=== PATIENT | male | born 1995 | race Caucasian/White ===

== ENCOUNTER 2019-02-27 22:20 | Observation (INO) | payer MEDICAID, SELFPAY ==
[2019-02-27 22:24] VITALS: BP 156/96; PULSE 128; RESP 18; TEMP 37.1; O2SAT 99; BMI 33.5
--- NOTE | 2019-02-27 22:46 | EKG12_ITS ---
Test Reason : DIZZINESS Blood Pressure : / mmHG Vent. Rate : 120 BPM Atrial Rate : 120 BPM P-R Int : 142 ms QRS Dur : 082 ms QT Int : 312 ms P-R-T Axes : 030 -10 040 degrees QTc Int : 440 ms Sinus tachycardia Otherwise normal ECG Confirmed by TYRESE TREADWELL, DIEGO ([id number]), newspaper photo editor CHRIS MIDDLETON ([id number]) on 03/04/2019 1:42:50 PM Referred By: ALLAN Confirmed By:DIEGO XIONG MD
[2019-02-27] MEDS: 0.9% Normal Saline 1,000 ML 1000 ML IV (23:17)
[2019-02-27] MEDS: Ondansetron 4 MG/2 ML Vial IV (23:17)
[2019-02-27] MEDS: DiphenhydrAMINE 50 MG/ML Syringe 12.5 MG IV (23:17)
[2019-02-27 23:25] LABS: Absolute Lymphocyte Count 1.29 X10^3/ul (0.83-4.51); Absolute Neutrophil Count 13.2 X10^3/uL (2.0-7.7); Basophil# 0.02 X10^3/uL; Basophil% 0.1 % (0-1); Differential Indicated SCAN CRITERIA MET; Eosinophil# 0.03 X10^3/uL; Eosinophils% 0.2 % (0-5); Hematocrit 47.8 % (40-54); Hemoglobin 16.4 g/dl (13.0-16.5); Lymphocyte # 1.29 X10^3/ul (4.0); Lymphocyte % 7.7 % (19-41); Mean Corp Hgb Conc 34.3 g/gl (32-36); Mean Corpuscular Hgb 28.2 pg (27.0-32.0); Mean Corpuscular Volume 82.3 fL (80-94); Mean Platelet Vol. 10.1 fl (6.2-12.0); Monocyte# 2.09 X10^3/uL; Monocyte% 12.6 % (0-10); Neutrophil # 13.16 X10^3/uL (2.7-7.7); POSITIVE COUNT NO; POSITIVE DIFFERENTIAL YES; POSITIVE MORPHOLOGY NO; Platelet Count 209 K/mm3 (150-450); RBC Distribution Width CV 12.7 % (11.6-14.6); RBC Distribution Width SD 37.8 fl (35.1-43.9); Red Blood Count 5.81 M/mm3 (4.6-6.2); White Blood Count 16.7 K/mm3 (4.4-11.0)
[2019-02-27 23:37] LABS: Anion Gap 7 (5-15); BUN 12 mg/dL (7-18); BUN/Creat Ratio 10.7 RATIO (10-20); Calcium,Total 9.2 mg/dL (8.5-10.1); Chloride 102 mmol/L (98-107); Creatinine, Serum 1.12 mg/dL (0.70-1.30); EST Glomerular Filtration Rate 84 mL/min (>60); Est Glom Filt Rate - Afr Amer 102 mL/min (>60); Glucose 105 mg/dL (74-106); Sodium Level 136 mmol/L (136-145)
[2019-02-27 23:40] LABS: Mucous, Urine 0 SEEN /hpf (<or=2+); Red Blood Cells-Urine 0 SEEN /hpf (0-5); White Blood Cells 0 SEEN /hpf (0-5)
[2019-02-27 23:45] LABS: Color, Urine Yellow (Yellow); Glucose, Dipstick Normal (Normal); Ketone-Dipstick Negative (Negative); Leukocyte Esterase-Dipstick Negative /ul (Negative); Nitrite-Dipstick Negative (Negative); Occult Blood-Urine Negative /ul (Negative); Protein-Dipstick Negative (Negative); Specific Gravity, Urine 1.015 (1.002-1.030); Urine Bilirubin Dipstick Negative (Negative); Urine Clarity Clear (Clear); Urine Urobilinogen Normal (Normal)
[2019-02-27 23:47] LABS: Differential Comment SCANNED
[2019-02-27 23:51] LABS: Bacteria RARE /hpf (None Seen); Squamous Epithelial Cells - UA 0-5 SEEN /hpf (0-5)
[2019-02-28] VITALS (12 sets, daily range): BP systolic 120–134; BP diastolic 77–88; PULSE 75–121; RESP 15–25; TEMP 36.4–36.8; O2SAT 93–96; BMI 33.7
[2019-02-28] MEDS: LORazepam 2 MG/ML Syringe 0.5 MG IV (00:44)
--- NOTE | 2019-02-28 01:23 | CT_ITS ---
HISTORY: DIZZINESS AND NAUSEAHX:SEIZURES EXAMINATION: CT Head or Brain W/O Contrast TECHNIQUE: Multiple axial images were obtained of the brain without intravenous contrast. A radiation dose optimization technique was used for this scan. IV Contrast dosage and agent: None. COMPARISON: 05/19/2016 FINDINGS: No significant change. Normal ventricles and normal cam-white matter differentiation. No intracranial mass, hemorrhage, or acute parenchymal abnormality. Posterior fossa structures are unremarkable. No suspicious extra-axial fluid collection. As visualized, the mastoids and paranasal sinuses are clear. CT/Brain/Head without Contrast IMPRESSION: Normal CT brain without contrast. Individualized dose optimization techniques were used for this CT. at 0251 Reported and signed by: Fernando Yeager MD Electronically Signed: Fernando Yeager, at 2:49 EDT Tel , Service support ,
[2019-02-28] MEDS: Meclizine HCl 25 MG Tablet PO ×4 (01:40→20:55)
--- NOTE | 2019-02-28 03:21 | ED.RN ---
MD AWARE OF PT STILL FEELING DIZZY.
--- NOTE | 2019-02-28 04:05 | HP.PCM_ITS ---
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 He described his seizures as spinning sensation and he being about to sink. Although in the past he has had dizziness, this current dizziness persisted all day unlike previous. The dizziness occurs with movement. At rest he has no dizziness. Also associated with his symptoms is malaise and nausea. He denies any recent infection or hearing loss. Emergency department doctor reported that patient complained of his throat closing. Further patient was found to have sinus tachycardia at the ED. He reports that typically his pulse is around 90 to 100 but at the ED his heart rate was found to be around 110 to 120. Patient was given Ativan, Antivert, Benadryl, Zofran and normal saline bolus at the ED Past Medical History Medical History: Medical History (Last Reviewed 02/28/19 @ 06:48 by Eusebio Agrawal MD) Seizure R56.9 Allergies amoxicillin trihydrate [From Augmentin] Allergy (Verified 02/27/19 22:24) Shortness of breath banana [Banana] Allergy (Verified 02/27/19 22:24) Chest tightness potassium clavulanate [From Augmentin] Allergy (Verified 02/27/19 22:24) Shortness of breath naproxen [From Naprosyn] Adverse Reaction (Verified 02/27/19 22:24) Nausea AVACODO Allergy (Uncoded 02/27/19 22:24) Shortness of breath KIWI Allergy (Uncoded 02/27/19 22:24) Shortness of breath POTASSIUM NITRATE Allergy (Uncoded 02/27/19 22:24) Shortness of breath Home Medications: Ambulatory Orders Medication Instructions Recorded Ondansetron [Zofran Odt] 4 mg PO Q8H PRN PRN 01/16/16 Metoclopramide [Reglan] 10 mg PO 4X/DAY #20 tablet 05/22/16 Pantoprazole Sodium [Protonix] 40 mg PO BID #60 tablet 05/22/16 Valproic Acid [Depakene] 750 mg PO BID 02/28/19 levETIRAcetam tablet [Keppra] 1,500 mg PO BID #180 tablet 02/28/19 Surgical History: - - Bilateral shoulder surgery. He reported that he had seizures and fell injuring his bilateral shoulders and required surgery. He reported that later his body rejected hardware in his left shoulder so that hardware had to be removed. He thinks that now his body is rejecting the right hardware so that would also have to be removed. Lives: With Family Smoking Status: Never smoker Alcohol: None - *Family History Maternal History Items: Heart Disease, Renal Disease Paternal History Items: Heart Disease Review of Systems Constitutional: Reports: Chills, Malaise. Denies: Fever, Weight Change HEENT: Denies: Head Aches, Sinus Congestion, Sinus Drainage Cardiovascular: Denies: Chest Pain, Palpitations Respiratory: Denies: Cough, Shortness of breath at rest, Sputum production Gastrointestinal: Reports: Nausea. Denies: Abdominal Pain, Vomiting Genitourinary: Denies: Dysuria Musculoskeletal: Denies: Joint Pain, Joint Tenderness Skin: Denies: Rash, Wounds Neurological: Denies: Numbness, Tingling, Focal weakness Psychiatric: Denies: Anxiety, Depression, Homicidal Ideations, Suicidal Ideations Hematologic/ Lymphatic: Denies: Easy Bruising, Easy Bleeding VTE Information - Inpt Only VTE Present on Admission: No VTE Mechan Device Prophylaxis: None VTE Pharm Prophylaxis ordered?: No Reason prophylaxis not ordered:: Treatment Not Indicated - Low risk. Encouraged to ambulate. Patient Problems: Active and Suspected Problems (Last Updated 02/28/19 @ 05:48 by Eusebio Agrawal MD) Vertigo (Acute) - Physical Exam General: Alert, Oriented x3, Cooperative, - - Obese HEENT: Atraumatic, PERRLA, EOMI, Normocephalic, - - Earwax prevented visualization of eardrum. Neck: Supple, No JVD, Negative Carotid Bruits Lungs: Clear to auscultation, Normal air movement Cardiovascular: Normal S1, Normal S2, No murmurs, Tachycardic Abdomen: Bowel Sounds Present, Soft, Non Tender Extremities: No edema, Capillary Refill Less than 3 Seconds Skin: No rashes, No breakdown Musculoskeletal: No Tenderness to Palpation of Joints or Extremities Neurological: Neuro grossly intact, - - [place]-Hallpike maneuver was unremarkable on the left. The patient complained of dizziness with [place]-Hallpike maneuver on the right. No nystagmus was seen in either case. Psych/Mental Status: Normal Affect, Appropriate Vital Signs Temp Pulse Resp BP Pulse Ox 98.8 F 116 H 18 120/87 H 96 02/27/19 22:24 02/28/19 04:02 02/28/19 04:02 02/28/19 00:56 02/28/19 04:02 Oxygen Delivery Method Room Air Weight: 100.2 kg Body Mass Index (BMI) 33.5 Laboratory Tests Past 24 Hrs 02/27/19 02/27/19 02/27/19 23:15 23:15 23:35 WBC 16.7 H RBC 5.81 Hgb 16.4 Hct 47.8 MCV 82.3 MCH 28.2 MCHC 34.3 RDW 12.7 RDW Differential 37.8 Plt Count 209 MPV 10.1 Immature Gran % (Auto) 0.400 Neut % (Auto) 79.0 H Lymph % (Auto) 7.7 L [place] % (Auto) 12.6 H Eos % (Auto) 0.2 Baso % (Auto) 0.1 Absolute Neuts (auto) 13.2 H Absolute Lymphs (auto) 1.29 Total Counted Not Reportable Differential Comment SCANNED Diff Path Review February Sodium 136 Potassium 4.0 Chloride 102 Carbon Dioxide 27.0 Anion Gap 7 BUN 12 Creatinine 1.12 Estim Creat Clear Calc 96.70 Est GFR (MDRD) Af Amer 102 Est GFR (MDRD) Non-Af 84 BUN/Creatinine Ratio 10.7 Glucose 105 Calcium 9.2 Urine Color Yellow Urine Clarity Clear Urine pH 8.0 Ur Specific [place] 1.015 Urine Protein Negative Urine Glucose (UA) Normal Urine Ketones Negative Urine Occult Blood Negative Urine Nitrite Negative Urine Bilirubin Negative Urine Urobilinogen Normal Ur Leukocyte Esterase Negative Urine RBC 0 SEEN Urine WBC 0 SEEN Ur Squamous Epith Cells 0-5 SEEN Urine Bacteria RARE Urine Mucus 0 SEEN Assessment/Plan All Active Problems (Last Updated 02/28/19 @ 05:48 by Eusebio Agrawal MD) Vertigo (Acute) The patient is a 24 year old M with a significant history of Obesity; 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 Vertigo Due to the positional nature of the vertigo likely this is BPPV. Other differential diagnosis includes Vestibular neuritis. Less likely posterior circulation stroke in this young patient with no vascular disease or diabetes. Further Differential diagnosis include viral illness since patient complained of chills. Ordered MRI/MRA of head and neck. Scheduled meclizine Prn Zofran Consider benzodiazepines if meclizine is not effective and if MRI is negative. Physical therapy to train on Vestibular Rehab and to do Leanna maneuver Status po Fluid bolus at the ED; after which maintenance IV was initiated. Continue NSS maintenance infusion Seizure Disorder Valproic acid continued DVT Prophylaxis Low risk. Encouraged to ambulate Code Visit OBSV E&M: 05159 Initial observation care L3
--- NOTE | 2019-02-28 04:06 | ED.DCSUM_ITS ---
- ER Visit Summary Date of Service: 02/28/19 Chief Complaint: Dizzy, nausea History of Present Illness: The patient is a 24 M with history of seizures. Patient states he woke this morning with dizziness. He describes it as both lightheadedness and some spinning sensation. He has had similar in the past but states it usually resolves on its own very quickly. Today symptoms of lasted all day. He is also stating that he feels like his throat is tightening up. He denies any new foods or medications today. His last seizure was in January. He follows with neurology in [place]. Physical Examination: Blood pressure is 136/96, temperature 98.8, heart rate 128, respiratory rate 18, pulse ox 99% on room air. Patient sitting upright in bed no acute distress. He speaks with a strong voice and is tolerating secretions well. Head and neck examination normal. Heart is regular rhythm but tachycardic. Lung sounds are clear. Abdomen is soft and nontender. Neuro exam is unremarkable. Test Results: EKG is sinus tach at 120 with no sign of acute ischemia. CBC was a white count of 16.7 with 78% neutrophils. Chemistry studies normal. Urinalysis normal. Emergency Department Course and Treatment: Patient does report a history of tachycardia, but states his heart is a little faster today than normal. Patient is given IV fluids, Zofran, and Benadryl. On repeat evaluation heart rate is around 112 when he is resting, when you enter the room to talk with him it will go back up into the 120s. Patient denies any recent illness or infection. He has not had cough or shortness of breath. He does not have abdominal pain, nausea, vomiting, or diarrhea. Due to continued dizziness, patient was given a small dose of Ativan and sent for head CT. CT head is unremarkable. On repeat examination patient states he still felt quite dizzy when attempting to ambulate to the restroom. He was given a dose of p.o. Antivert. Nursing staff to get patient up to ambulate him again. He still feels quite dizzy and unsteady on his feet. I will speak with hospitalist regarding admission. Treatment Plan: [] Disposition: Admit Impression: 1. Intractable dizziness 2. Tachycardia This note was generated with [employer] software. It may contain incorrect words, spelling, and punctuation that were not noted in review of the chart prior to signing ED Disposition - Plan for ED Patient: Referrals: Jose Elias Nguyen MD [Primary Care Provider] -
--- NOTE | 2019-02-28 05:32 | MRI_ITS ---
STUDY: MRA OF THE HEAD WITHOUT CONTRAST REASON FOR EXAM: Male, 24 years old. Vertigo, history of seizures. Melkersson-Jason syndrome. TECHNIQUE: 3-D [id number] (TOF) imaging was performed with MIPs. The study was performed unenhanced. COMPARISON: No prior similar imaging at this institution. Prior CT of the head/brain performed February 28, [address] brain without contrast. FINDINGS: Normal bilateral petrous carotid arteries. Normal right cavernous carotid artery with a normal supraclinoid bifurcation. Normal left cavernous carotid artery with a normal supraclinoid bifurcation. Normal right A1 segments of the anterior cerebral artery. Normal left A1 segments of the anterior cerebral artery. Normal intact anterior communicating artery (ACOM). Normal bilateral A2 segments of the anterior cerebral arteries. Normal right M1 and M2 segments of the middle cerebral arteries, with a normal M1 bifurcation. Normal left M1 and M2 segments of the middle cerebral arteries, with a normal M1 bifurcation. There is nonvisualization of the right posterior communicating artery (PCOM). This finding may simply represent slow flow in a small vessel averaged in plane. Normal left posterior communicating artery (PCOM). Normal bilateral vertebral arteries. Normal basilar artery with a normal basilar bifurcation. The visualized bilateral superior cerebellar (SCA) arteries are normal. Normal bilateral P1, P2 and visualized P3 segments of the posterior cerebral arteries. There is no demonstrated aneurysm of the [place] of [place]. There is no major vessel occlusion or hemodynamically significant stenosis. There is no demonstrated abnormality of the visualized brain. MRI/MRA Head ONLY without Contrast IMPRESSION: No evident aneurysm. No evidence of vasculitis. No CT evident hemodynamically significant stenosis. Nonvisualization of the right posterior communicating artery may simply represent slow flow in a small vessel that is imaged in plane. Electronically Signed: Mark Carreon MD at 9:50 EDT , Service support ,
--- NOTE | 2019-02-28 05:32 | MRI_ITS ---
STUDY: MRI BRAIN WITHOUT CONTRAST REASON FOR EXAM: Male, 24 years old. Vertigo, history of seizures, milk or central Jason syndrome. TECHNIQUE: Standardized multiplanar fat and water weighted pulse sequences were obtained. COMPARISON: No contrast was administered. FINDINGS: There is no restricted diffusion to indicate acute ischemia/edema. There is no evidence of chronic blood degradation products on the axial T2 GRE sequence. Normal size of the ventricles and extra-axial spaces for the patient's age. Normal white matter tracts of the supratentorial brain. Normal bilateral basal ganglia. Normal thalami. There is no extra-axial fluid accumulation. Normal flow voids within the major intracranial circulation suggesting patency by spin echo criteria. Normal sella turcica, pituitary gland, infundibular stalk, optic chiasm and hypothalamus. Normal tectal plate and pineal gland. Normal midbrain, mary and medulla. Normal cerebellum. Normal basal cisterns. Normal bilateral temporal bones. Normal bilateral internal auditory canals. No demonstrated orbital abnormality, within the constraints of a routine brain study. Normal visualized paranasal sinuses and mastoid air cells. Normal calvarium and skull base. Normal visualized soft tissue structures. Normal visualized upper cervical spine. MRI/Brain without Contrast IMPRESSION: No restricted diffusion to indicate acute ischemia/edema. No evidence of chronic blood dictation products on axial T2 GRE sequence. No mass or mass effect. Unremarkable appearing morphology and signal characteristics of the brain. Electronically Signed: Mark Carreon MD at 10:00 EDT , Service support ,
[2019-02-28] MEDS: 0.9% Normal Saline 1,000 ML 100 ML IV (05:40)
[2019-02-28] MEDS: 0.9% NaCl Peripheral Flush Adult/Peds IV (05:48)
[2019-02-28 06:59] LABS: Cholesterol 180 mg/dL (200); High Density Lipoprotein 34 mg/dL; Triglycerides 165 mg/dL; Very Low Density Lipoprotein 33 mg/dL (5-40)
--- NOTE | 2019-02-28 07:58 | MRI_ITS ---
STUDY: MRA NECK WITH AND WITHOUT CONTRAST REASON FOR EXAM: Male, 24 years old. Vertigo. Seizure. Melkersson-Jason syndrome. TECHNIQUE: 3-D [id number] (TOF) imaging was performed in an 1.5 T MRI scanner. 20 IV Dotarem was administered for the contrast enhanced images. COMPARISON: None. FINDINGS: RIGHT CAROTID ARTERIES: Normal right common carotid artery (CCA). Normal right common carotid bulb. Normal origin of the right internal carotid (ICA) artery without a hemodynamically significant stenosis. Normal visualized cervical portion of the right internal carotid artery. Normal origin of the right external carotid artery (ECA). LEFT CAROTID ARTERIES: Normal left common carotid artery (CCA). Normal left common carotid bulb. Normal origin of the left internal carotid (ICA) artery without a hemodynamically significant stenosis. There is atherosclerotic tortuous elongation of the cervical portion of the left internal carotid artery. Normal origin of the left external carotid artery (ECA). VERTEBRAL ARTERIES: Normal antegrade flow within the bilateral vertebral artery without a hemodynamically significant stenosis. MRI/MRA Neck WITH and W/O Contrast IMPRESSION: Normal bilateral cervical carotid and vertebral arteries. No stenosis or focal narrowing. Electronically Signed: Tomy Esapña MD at 10:55 EDT , Service support ,
[2019-02-28] MEDS: Divalproex Sodium 250 MG Tablet 750 MG PO ×2 (09:46→20:54)
[2019-02-28 11:48] LABS: Absolute Lymphocyte Count 2.01 X10^3/ul (0.83-4.51); Absolute Neutrophil Count 10.7 X10^3/uL (2.0-7.7); Basophil# 0.02 X10^3/uL; Basophil% 0.1 % (0-1); Differential Indicated SCAN CRITERIA MET; Eosinophil# 0.03 X10^3/uL; Eosinophils% 0.2 % (0-5); Hematocrit 45.3 % (40-54); Hemoglobin 15.4 g/dl (13.0-16.5); Lymphocyte # 2.01 X10^3/ul (4.0); Lymphocyte % 13.6 % (19-41); Mean Corpuscular Hgb 28.8 pg (27.0-32.0); Mean Corpuscular Volume 84.8 fL (80-94); Mean Platelet Vol. 9.8 fl (6.2-12.0); Monocyte# 1.92 X10^3/uL; Neutrophil # 10.72 X10^3/uL (2.7-7.7); Neutrophil % 72.8 % (47-70); POSITIVE COUNT NO; POSITIVE DIFFERENTIAL YES; POSITIVE MORPHOLOGY NO; Platelet Count 169 K/mm3 (150-450); RBC Distribution Width CV 12.9 % (11.6-14.6); RBC Distribution Width SD 39.4 fl (35.1-43.9); Red Blood Count 5.34 M/mm3 (4.6-6.2); White Blood Count 14.7 K/mm3 (4.4-11.0)
--- NOTE | 2019-02-28 13:07 | PCM.PROGNOTE ---
<Robin Funk - Last Filed: 02/28/19 13:07> Patient Problems: Active and Suspected Problems (Last Reviewed 02/28/19 @ 06:48 by Eusebio Agrawal MD) Vertigo (Acute) Subjective: Pt reports still having some dizziness, no spinning currently. No double vision, blurry vision. No new focal weakness or sensation changes. He is concerned he may have had a seizure, as he had episodes yesterday where his mother was talking to him, and he had no recollection of it, and she noted that he was not appearing to be paying attention. He does not remember having muscle spasms, incontinence, tongue biting. He has chronic right sided facial droop. He has had multiple episodes of BL bells palsy. He had a headache this AM - mild, but none now. No nausea currently. He states he has had chronic issues keeping his depakote level from being low and has been told it is because he has a fast metabolism. He denies any recent illness or infection. No fevers/chills. No cough, SOB, runny nose, congestion, sore throat. - Physical Exam General: Alert, Oriented x3, Cooperative HEENT: Atraumatic, PERRLA, EOMI, Normocephalic Neck: Supple, No JVD, Negative Carotid Bruits Lungs: Clear to auscultation, Normal air movement Cardiovascular: Regular rate, No murmurs Abdomen: Bowel Sounds Present, Soft, Non Tender Extremities: No edema, Capillary Refill Less than 3 Seconds Skin: No rashes, No breakdown Musculoskeletal: No Tenderness to Palpation of Joints or Extremities Neurological: Cranial nerves II-XII grossly intact, - - mild right facial droop, weakness in right cheek, left leg mild weakness. Psych/Mental Status: Normal Affect, Appropriate, Alert and oriented to time, place, person, mood and affect Vital Signs Temp Pulse Resp BP Pulse Ox 97.8 F 109 H 16 129/88 H 95 02/28/19 08:15 02/28/19 08:15 02/28/19 08:15 02/28/19 08:15 02/28/19 08:15 Oxygen Delivery Method Room Air Weight: 221 lb 9.033 oz Body Mass Index (BMI) 33.7 Intake and Output for Last 24 Hours 02/26/19 02/27/19 02/28/19 23:59 23:59 23:59 Intake Total 1200 / 1200 Balance 1200 / 1200 Laboratory Tests Past 24 Hrs 02/27/19 02/27/19 02/27/19 23:15 23:15 23:35 WBC 16.7 H RBC 5.81 Hgb 16.4 Hct 47.8 MCV 82.3 MCH 28.2 MCHC 34.3 RDW 12.7 RDW Differential 37.8 Plt Count 209 MPV 10.1 Immature Gran % (Auto) 0.400 Neut % (Auto) 79.0 H Lymph % (Auto) 7.7 L [place] % (Auto) 12.6 H Eos % (Auto) 0.2 Baso % (Auto) 0.1 Absolute Neuts (auto) 13.2 H Absolute Lymphs (auto) 1.29 Total Counted Not Reportable Differential Comment SCANNED Diff Path Review May foll Sodium 136 Potassium 4.0 Chloride 102 Carbon Dioxide 27.0 Anion Gap 7 BUN 12 Creatinine 1.12 Estim Creat Clear Calc 96.70 Est GFR (MDRD) Af Amer 102 Est GFR (MDRD) Non-Af 84 BUN/Creatinine Ratio 10.7 Glucose 105 Calcium 9.2 Triglycerides Cholesterol LDL Cholesterol VLDL Cholesterol HDL Cholesterol Urine Color Yellow Urine Clarity Clear Urine pH 8.0 Ur Specific [place] 1.015 Urine Protein Negative Urine Glucose (UA) Normal Urine Ketones Negative Urine Occult Blood Negative Urine Nitrite Negative Urine Bilirubin Negative Urine Urobilinogen Normal Ur Leukocyte Esterase Negative Urine RBC 0 SEEN Urine WBC 0 SEEN Ur Squamous Epith Cells 0-5 SEEN Urine Bacteria RARE Urine Mucus 0 SEEN 02/28/19 02/28/19 06:24 11:30 WBC 14.7 H RBC 5.34 Hgb 15.4 Hct 45.3 MCV 84.8 MCH 28.8 MCHC 34.0 RDW 12.9 RDW Differential 39.4 Plt Count 169 MPV 9.8 Immature Gran % (Auto) 0.300 Neut % (Auto) 72.8 H Lymph % (Auto) 13.6 L [place] % (Auto) 13.0 H Eos % (Auto) 0.2 Baso % (Auto) 0.1 Absolute Neuts (auto) 10.7 H Absolute Lymphs (auto) 2.01 Total Counted Not Reportable Differential Comment COMMENT Diff Path Review May foll Sodium Potassium Chloride Carbon Dioxide Anion Gap BUN Creatinine Estim Creat Clear Calc Est GFR (MDRD) Af Amer Est GFR (MDRD) Non-Af BUN/Creatinine Ratio Glucose Calcium Triglycerides 165 Cholesterol 180 LDL Cholesterol 113 VLDL Cholesterol 33 HDL Cholesterol 34 L Urine Color Urine Clarity Urine pH Ur Specific [place] Urine Protein Urine Glucose (UA) Urine Ketones Urine Occult Blood Urine Nitrite Urine Bilirubin Urine Urobilinogen Ur Leukocyte Esterase Urine RBC Urine WBC Ur Squamous Epith Cells Urine Bacteria Urine Mucus Medical Necessity - Tobacco Use Smoking Status: Never smoker Tobacco Use: Non-smoker Assessment/Plan All Active Problems (Last Reviewed 02/28/19 @ 06:48 by Eusebio Agrawal MD) Vertigo (Acute) 1. Dizziness - unclear etiology. MRI/MRA negative. CT brain neg. PRN meclizine. PTOT, vestib therapy. 2. ? Seizure activity - pt concerned the above related to seizure. He states he is not considered controlled, and had a seizure about 1 month prior. He has issues keeping depakote levels regulated. He states he has a hx of absence seizures, grand mal, and focal seizures. He thinks he may have had an absence seizure yesterday. He follows 2 neurologists, Raquel and [facility]. -Check depakote level -EEG -neuro consult. 3. Leukocytosis - improved. unclear etiology. Denies recent illness/infection. Currently does not feel ill. 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 5. Obesity - dietary eval. DVT ppx: early ambulation DC planning: pending neuro eval This patient was seen by Robin Funk PA-C under the supervision of Dr. Escobar. <Mariana Escobar - Last Filed: 02/28/19 16:27> - Physical Exam Vital Signs Temp Pulse Resp BP Pulse Ox 98.1 F 121 H 16 131/77 H 96 02/28/19 14:15 02/28/19 16:14 02/28/19 14:15 02/28/19 14:15 02/28/19 14:15 Oxygen Delivery Method Room Air Weight: 100.5 kg Body Mass Index (BMI) 33.7 Intake and Output for Last 24 Hours 02/26/19 02/27/19 02/28/19 23:59 23:59 23:59 Intake Total 1200 / 1200 Balance 1200 / 1200 Laboratory Tests Past 24 Hrs 0502/27/19 02/27/19 23:15 23:15 23:35 WBC 16.7 H RBC 5.81 Hgb 16.4 Hct 47.8 MCV 82.3 MCH 28.2 MCHC 34.3 RDW 12.7 RDW Differential 37.8 Plt Count 209 MPV 10.1 Immature Gran % (Auto) 0.400 Neut % (Auto) 79.0 H Lymph % (Auto) 7.7 L [place] % (Auto) 12.6 H Eos % (Auto) 0.2 Baso % (Auto) 0.1 Absolute Neuts (auto) 13.2 H Absolute Lymphs (auto) 1.29 Total Counted Not Reportable Differential Comment SCANNED Diff Path Review Reviewed Sodium 136 Potassium 4.0 Chloride 102 Carbon Dioxide 27.0 Anion Gap 7 BUN 12 Creatinine 1.12 Estim Creat Clear Calc 96.70 Est GFR (MDRD) Af Amer 102 Est GFR (MDRD) Non-Af 84 BUN/Creatinine Ratio 10.7 Glucose 105 Calcium 9.2 Triglycerides Cholesterol LDL Cholesterol VLDL Cholesterol HDL Cholesterol Urine Color Yellow Urine Clarity Clear Urine pH 8.0 Ur Specific [place] 1.015 Urine Protein Negative Urine Glucose (UA) Normal Urine Ketones Negative Urine Occult Blood Negative Urine Nitrite Negative Urine Bilirubin Negative Urine Urobilinogen Normal Ur Leukocyte Esterase Negative Urine RBC 0 SEEN Urine WBC 0 SEEN Ur Squamous Epith Cells 0-5 SEEN Urine Bacteria RARE Urine Mucus 0 SEEN 02/28/19 02/28/19 06:24 11:30 WBC 14.7 H RBC 5.34 Hgb 15.4 Hct 45.3 MCV 84.8 MCH 28.8 MCHC 34.0 RDW 12.9 RDW Differential 39.4 Plt Count 169 MPV 9.8 Immature Gran % (Auto) 0.300 Neut % (Auto) 72.8 H Lymph % (Auto) 13.6 L [place] % (Auto) 13.0 H Eos % (Auto) 0.2 Baso % (Auto) 0.1 Absolute Neuts (auto) 10.7 H Absolute Lymphs (auto) 2.01 Total Counted Not Reportable Differential Comment COMMENT Diff Path Review Reviewed Sodium Potassium Chloride Carbon Dioxide Anion Gap BUN Creatinine Estim Creat Clear Calc Est GFR (MDRD) Af Amer Est GFR (MDRD) Non-Af BUN/Creatinine Ratio Glucose Calcium Triglycerides 165 Cholesterol 180 LDL Cholesterol 113 VLDL Cholesterol 33 HDL Cholesterol 34 L Urine Color Urine Clarity Urine pH Ur Specific [place] Urine Protein Urine Glucose (UA) Urine Ketones Urine Occult Blood Urine Nitrite Urine Bilirubin Urine Urobilinogen Ur Leukocyte Esterase Urine RBC Urine WBC Ur Squamous Epith Cells Urine Bacteria Urine Mucus Assessment/Plan This patient was seen in conjunction with KALIN Quintanilla. I have independently interviewed and examined the patient and reviewed pertinent historical, laboratory, and other data. Please refer to KALIN Quintanilla note for his patient's presentation, findings, and recommendations. I have reviewed and his note and concur with his documentation Patient was seen and examined. Denies any new complaints. Feels improved. Vitals are stable. Physical Exam: Gen:Looks well, not pale, not jaundiced, well hydrated CVS:HS I +II, regular, no murmurs RESP: CTA GI: BS present and normal, soft, nontender, no palpable organs EXT:No edema MRI brain, MRA head and neck negative ASSESSMENT: 1. Intractable dizziness, appears resolved now 2. Seizure disorder 3. Leucocytosis, likely reactive, improving 4. Malkersson cris syndrome 5. Obesity Plan: Follow-up on Depakote level Continue on Depakote, meclizine as needed Code Visit Inpatient E&M: 96790 Subs Hosp L2
[2019-02-28 14:22] LABS: Pathologist Review Reviewed
[2019-02-28 14:23] LABS: Pathologist Review Reviewed
[2019-02-28 18:03] LABS: Valproic Acid (Depakene) Level 93 ug/mL (50-100)
[2019-03-01 01:18] VITALS: PULSE 95
[2019-03-01 03:46] VITALS: BP 117/63; PULSE 97; RESP 15; TEMP 36.7; O2SAT 94
[2019-03-01 04:00] VITALS: RESP 15
[2019-03-01 04:01] VITALS: PULSE 94
[2019-03-01 06:50] LABS: Absolute Lymphocyte Count 2.06 X10^3/ul (0.83-4.51); Absolute Neutrophil Count 7.5 X10^3/uL (2.0-7.7); Basophil# 0.02 X10^3/uL; Basophil% 0.2 % (0-1); Eosinophil# 0.16 X10^3/uL; Eosinophils% 1.4 % (0-5); Hematocrit 46.8 % (40-54); Hemoglobin 16.1 g/dl (13.0-16.5); Lymphocyte # 2.06 X10^3/ul (4.0); Lymphocyte % 17.9 % (19-41); Mean Corp Hgb Conc 34.4 g/gl (32-36); Mean Corpuscular Hgb 29.4 pg (27.0-32.0); Mean Corpuscular Volume 85.4 fL (80-94); Monocyte# 1.69 X10^3/uL; Monocyte% 14.7 % (0-10); Neutrophil # 7.53 X10^3/uL (2.7-7.7); Neutrophil % 65.5 % (47-70); Platelet Count 185 K/mm3 (150-450); RBC Distribution Width CV 12.7 % (11.6-14.6); RBC Distribution Width SD 39.6 fl (35.1-43.9); Red Blood Count 5.48 M/mm3 (4.6-6.2); White Blood Count 11.5 K/mm3 (4.4-11.0)
[2019-03-01 06:58] LABS: POSITIVE COUNT NO; POSITIVE DIFFERENTIAL YES; POSITIVE MORPHOLOGY NO
[2019-03-01 06:59] LABS: Differential Indicated SCAN CRITERIA MET
[2019-03-01 07:40] VITALS: PULSE 103
[2019-03-01 08:57] VITALS: BP 126/86; PULSE 104; RESP 16; TEMP 36.7; O2SAT 92
[2019-03-01] MEDS: Divalproex Sodium 250 MG Tablet 750 MG PO (09:11)
--- NOTE | 2019-03-01 12:13 | DCINST_ITS ---
- Discharge Diagnoses Current Active Problems: Current Active and Chronic Problems (Last Reviewed 02/28/19 @ 06:48 by Eusebio Agrawal MD) Vertigo (Acute) You will use the following diet at home:: No restrictions Your food should be the consistency of: Regular Your liquids should be the consistency of: Regular/Thin Discharge Activity: Return to Normal Activity, May Not Drive, - - No ladders, no swimming, no operating machinery. Allergies/Adverse Reactions: Allergies amoxicillin trihydrate [From Augmentin] Allergy (Verified 02/27/19 22:24) Shortness of breath banana [Banana] Allergy (Verified 02/27/19 22:24) Chest tightness potassium clavulanate [From Augmentin] Allergy (Verified 02/27/19 22:24) Shortness of breath naproxen [From Naprosyn] Adverse Reaction (Verified 02/27/19 22:24) Nausea AVACODO Allergy (Uncoded 02/27/19 22:24) Shortness of breath KIWI Allergy (Uncoded 02/27/19 22:24) Shortness of breath POTASSIUM NITRATE Allergy (Uncoded 02/27/19 22:24) Shortness of breath Medications to take at Discharge Ondansetron [Zofran Odt] 4 mg PO Q8H PRN PRN 01/16/16 Metoclopramide [Reglan] 10 mg PO 4X/DAY #20 tablet 05/22/16 Pantoprazole Sodium [Protonix] 40 mg PO BID #60 tablet 05/22/16 Valproic Acid [Depakene] 750 mg PO BID 02/28/19 Meclizine HCl [Antivert] 25 mg PO Q8H PRN PRN #21 tablet 03/01/19 The following prescriptions were given: Meclizine HCl [Antivert] 25 mg PO Q8H PRN PRN #21 tablet PRN Reason: Dizziness Primary Care Physician: Jose Elias Nguyen MD [Primary Care Provider] - Please follow up with your Primary Care Physician in: 1-2 weeks Test Results: Test results from this visit will be discussed in further detail at your follow- up appointment, if applicable. Please Follow Up With: Neurology - Your own When: 1 week Proposed Discharge Date: 03/01/19
--- NOTE | 2019-03-01 12:14 | PCM.DC.SUM ---
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 Individualized dose optimization techniques were used for this CT. at 0251 Reported and signed by: Fernando Yeager MD MRI/Brain without Contrast IMPRESSION: No restricted diffusion to indicate acute ischemia/edema. No evidence of chronic blood dictation products on axial T2 GRE sequence. No mass or mass effect. Unremarkable appearing morphology and signal characteristics of the brain. MRI/MRA Head ONLY without Contrast IMPRESSION: No evident aneurysm. No evidence of vasculitis. No CT evident hemodynamically significant stenosis. Nonvisualization of the right posterior communicating artery may simply represent slow flow in a small vessel that is imaged in plane. MRI/MRA Neck WITH and W/O Contrast IMPRESSION: Normal bilateral cervical carotid and vertebral arteries. No stenosis or focal narrowing. 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 He also reported that he had had episodes at home where he was staring off and his mother was speaking to him and he had no recollection of it, he was concerned about having an absence seizure which she has had in the past. There is no reported muscle contractions, tongue biting, episodes of incontinence, postictal phase. CT of the brain in the emergency room was negative. His white blood cell count was elevated, however he had no clear source of infection. Urinalysis was negative. He had no fever. He had no recent infections, he stated he otherwise felt like his normal self. He was admitted to the PCU and placed on telemetry. He had no events on telemetry. An MRI of the brain was obtained which was negative. MRI of the head and neck was also obtained which were unremarkable. We continued his home medications and placed him on meclizine. Following admission, with the meclizine he had significant improvement in his dizziness, had none the following morning. Neurology was consulted but was unable to see the patient, verbally recommended checking ammonia and if normal discharging the patient. His ammonia level was normal, and his Depakote level was normal. An EEG was obtained, the results are pending at this time. The patient was discharged home in stable condition with a prescription for PRN meclizine. As it is unclear whether or not he had seizure activity, and with him reporting that he recently had a seizure 1 month prior he was advised not to drive, and to avoid use of machinery, swimming, ladders. He will need follow-up with his to neurologist that he follows as an outpatient. Ideally he should be seen within a week. He will also need to follow-up with his PCP in 1 to 2 weeks. This patient was seen by Robin Funk PA-C under the supervision of Doctor Escobar. [] Patient Problems: Active and Suspected Problems (Last Reviewed 02/28/19 @ 06:48 by Eusebio Agrawal MD) Vertigo (Acute) - Physical Exam General: Alert, Oriented x3, Cooperative HEENT: Atraumatic, PERRLA, EOMI, Normocephalic Neck: Supple, No JVD, Negative Carotid Bruits Lungs: Clear to auscultation, Normal air movement Cardiovascular: Regular rate, No murmurs Abdomen: Bowel Sounds Present, Soft, Non Tender, Obese Extremities: No edema, Capillary Refill Less than 3 Seconds Skin: No rashes, No breakdown Musculoskeletal: No Tenderness to Palpation of Joints or Extremities Neurological: Cranial nerves II-XII grossly intact Psych/Mental Status: Normal Affect, Appropriate, Alert and oriented to time, place, person, mood and affect Vital Signs Temp Pulse Resp BP Pulse Ox 98.0 F 104 H 16 126/86 H 92 03/01/19 08:57 03/01/19 08:57 03/01/19 08:57 03/01/19 08:57 03/01/19 08:57 Oxygen Delivery Method Room Air Weight: 221 lb 9.033 oz Body Mass Index (BMI) 33.7 Intake and Output for Last 24 Hours 02/27/19 02/28/19 03/01/19 23:59 23:59 23:59 Intake Total 1750 / 1750 250 / 250 Balance 1750 / 1750 250 / 250 Laboratory Tests Past 24 Hrs 02/27/19 02/28/19 02/28/19 23:15 11:30 17:15 WBC RBC Hgb Hct MCV MCH MCHC RDW RDW Differential Plt Count MPV Immature Gran % (Auto) Neut % (Auto) Lymph % (Auto) [place] % (Auto) Eos % (Auto) Baso % (Auto) Absolute Neuts (auto) Absolute Lymphs (auto) Total Counted Not Reportable Differential Comment COMMENT Diff Path Review Reviewed Reviewed Ammonia Valproic Acid 93 03/01/19 03/01/19 06:05 08:10 WBC 11.5 H RBC 5.48 Hgb 16.1 Hct 46.8 MCV 85.4 MCH 29.4 MCHC 34.4 RDW 12.7 RDW Differential 39.6 Plt Count 185 MPV 10.0 Immature Gran % (Auto) 0.300 Neut % (Auto) 65.5 Lymph % (Auto) 17.9 L [place] % (Auto) 14.7 H Eos % (Auto) 1.4 Baso % (Auto) 0.2 Absolute Neuts (auto) 7.5 Absolute Lymphs (auto) 2.06 Total Counted Not Reportable Differential Comment Diff Path Review May foll Ammonia 23.0 Valproic Acid Discharge Diet: No Restrictions Discharge Activity: Return to Normal Activity, May Not Drive, - - No ladders, no swimming, no operating machinery. Home Medications: Medications to take at Discharge Ondansetron [Zofran Odt] 4 mg PO Q8H PRN PRN 01/16/16 Metoclopramide [Reglan] 10 mg PO 4X/DAY #20 tablet 05/22/16 Pantoprazole Sodium [Protonix] 40 mg PO BID #60 tablet 05/22/16 Valproic Acid [Depakene] 750 mg PO BID 02/28/19 Meclizine HCl [Antivert] 25 mg PO Q8H PRN PRN #21 tablet 03/01/19 Following Prescrptions Were Given to Patient: Meclizine HCl [Antivert] 25 mg PO Q8H PRN PRN #21 tablet PRN Reason: Dizziness Primary Care Physician: Jose Elias Nguyen MD [Primary Care Provider] - Please follow up with your Primary Care Physician in: 1-2 weeks Please Follow Up With: Neurology - Your own When: 1 week Disposition: Home Minutes spent on discharge:: 35 Patient Condition:: Stable Medical Necessity - Tobacco Use Smoking Status: Never smoker Tobacco Use: Non-smoker Meaningful Use Info Meaningful Use Diagnoses (Choose all that apply): None applicable <Luz,[place] - Last Filed: 03/01/19 12:54> Discharge Date and Diagnosis - Primary Discharge Diagnosis Active and Suspected Problems (Last Reviewed 02/28/19 @ 06:48 by Eusebio Agrawal MD) Vertigo (Acute) Hospital Course and Treatment \ Summary of Care Provided: 24 year old M with 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 Patient was admitted to the telemetry floor. CT of the brain was negative. MRI of the brain, MRA of the head and neck was also negative. Patient had a work-up including urinalysis, CBC D and BMP was positive only for leukocytosis, no signs of infection seen. This was felt to be reactive. Patient continued to be stable, his valproic acid was 93. Ammonia levels was normal. Patient was discharged to follow-up with his neurologist in the outpatient. Physical Exam: Gen:Looks well, not pale, not jaundiced, well hydrated CVS:HS I +II, regular, no murmurs RESP: CTA GI: BS present and normal, soft, nontender, no palpable organs EXT:No edema REPAIR SERVICER: CNII-XII intact, power is 5/5 in all extremities, normal tone. MRI brain, MRA head and neck negative ASSESSMENT: 1. Intractable dizziness, appears resolved now 2. Seizure disorder 3. Leucocytosis, likely reactive, improving 4. Malkersson jason syndrome 5. Obesity - Physical Exam Vital Signs Temp Pulse Resp BP Pulse Ox 98.0 F 104 H 16 126/86 H 92 03/01/19 08:57 03/01/19 08:57 03/01/19 08:57 03/01/19 08:57 03/01/19 08:57 Oxygen Delivery Method Room Air Weight: 100.5 kg Body Mass Index (BMI) 33.7 Intake and Output for Last 24 Hours 02/27/19 02/28/19 03/01/19 23:59 23:59 23:59 Intake Total 1750 / 1750 250 / 250 Balance 1750 / 1750 250 / 250 Laboratory Tests Past 24 Hrs 02/27/19 02/28/19 02/28/19 23:15 11:30 17:15 WBC RBC Hgb Hct MCV MCH MCHC RDW RDW Differential Plt Count MPV Immature Gran % (Auto) Neut % (Auto) Lymph % (Auto) [place] % (Auto) Eos % (Auto) Baso % (Auto) Absolute Neuts (auto) Absolute Lymphs (auto) Total Counted Diff Path Review Reviewed Reviewed Ammonia Valproic Acid 93 03/01/19 03/01/19 06:05 08:10 WBC 11.5 H RBC 5.48 Hgb 16.1 Hct 46.8 MCV 85.4 MCH 29.4 MCHC 34.4 RDW 12.7 RDW Differential 39.6 Plt Count 185 MPV 10.0 Immature Gran % (Auto) 0.300 Neut % (Auto) 65.5 Lymph % (Auto) 17.9 L [place] % (Auto) 14.7 H Eos % (Auto) 1.4 Baso % (Auto) 0.2 Absolute Neuts (auto) 7.5 Absolute Lymphs (auto) 2.06 Total Counted Not Reportable Diff Path Review May foll Ammonia 23.0 Valproic Acid Meaningful Use Info Meaningful Use Diagnoses (Choose all that apply): None applicable Code Visit OBSV E&M: 75720 Observation care discharge
--- NOTE | 2019-03-01 12:21 | DS.PCM_ITS ---
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 Individualized dose optimization techniques were used for this CT. at 0251 Reported and signed by: Fernando Yeager MD MRI/Brain without Contrast IMPRESSION: No restricted diffusion to indicate acute ischemia/edema. No evidence of chronic blood dictation products on axial T2 GRE sequence. No mass or mass effect. Unremarkable appearing morphology and signal characteristics of the brain. MRI/MRA Head ONLY without Contrast IMPRESSION: No evident aneurysm. No evidence of vasculitis. No CT evident hemodynamically significant stenosis. Nonvisualization of the right posterior communicating artery may simply represent slow flow in a small vessel that is imaged in plane. MRI/MRA Neck WITH and W/O Contrast IMPRESSION: Normal bilateral cervical carotid and vertebral arteries. No stenosis or focal narrowing. 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 He also reported that he had had episodes at home where he was staring off and his mother was speaking to him and he had no recollection of it, he was concerned about having an absence seizure which she has had in the past. There is no reported muscle contractions, tongue biting, episodes of incontinence, postictal phase. CT of the brain in the emergency room was negative. His white blood cell count was elevated, however he had no clear source of infection. Urinalysis was negative. He had no fever. He had no recent infections, he stated he otherwise felt like his normal self. He was admitted to the PCU and placed on telemetry. He had no events on telemetry. An MRI of the brain was obtained which was negative. MRI of the head and neck was also obtained which were unremarkable. We continued his home medications and placed him on meclizine. Following admission, with the meclizine he had significant improvement in his dizziness, had none the following morning. Neurology was consulted but was unable to see the patient, verbally recommended checking ammonia and if normal discharging the patient. His ammonia level was normal, and his Depakote level was normal. An EEG was obtained, the results are pending at this time. The patient was discharged home in stable condition with a prescription for PRN meclizine. As it is unclear whether or not he had seizure activity, and with him reporting that he recently had a seizure 1 month prior he was advised not to drive, and to avoid use of machinery, swimming, ladders. He will need follow-up with his to neurologist that he follows as an outpatient. Ideally he should be seen within a week. He will also need to follow-up with his PCP in 1 to 2 weeks. This patient was seen by Robin Funk PA-C under the supervision of Doctor Escobar. [] Patient Problems: Active and Suspected Problems (Last Reviewed 02/28/19 @ 06:48 by Eusebio Agrawal MD) Vertigo (Acute) - Physical Exam General: Alert, Oriented x3, Cooperative HEENT: Atraumatic, PERRLA, EOMI, Normocephalic Neck: Supple, No JVD, Negative Carotid Bruits Lungs: Clear to auscultation, Normal air movement Cardiovascular: Regular rate, No murmurs Abdomen: Bowel Sounds Present, Soft, Non Tender, Obese Extremities: No edema, Capillary Refill Less than 3 Seconds Skin: No rashes, No breakdown Musculoskeletal: No Tenderness to Palpation of Joints or Extremities Neurological: Cranial nerves II-XII grossly intact Psych/Mental Status: Normal Affect, Appropriate, Alert and oriented to time, place, person, mood and affect Vital Signs Temp Pulse Resp BP Pulse Ox 98.0 F 104 H 16 126/86 H 92 03/01/19 08:57 03/01/19 08:57 03/01/19 08:57 03/01/19 08:57 03/01/19 08:57 Oxygen Delivery Method Room Air Weight: 221 lb 9.033 oz Body Mass Index (BMI) 33.7 Intake and Output for Last 24 Hours 02/27/19 02/28/19 03/01/19 23:59 23:59 23:59 Intake Total 1750 / 1750 250 / 250 Balance 1750 / 1750 250 / 250 Laboratory Tests Past 24 Hrs 02/27/19 02/28/19 02/28/19 23:15 11:30 17:15 WBC RBC Hgb Hct MCV MCH MCHC RDW RDW Differential Plt Count MPV Immature Gran % (Auto) Neut % (Auto) Lymph % (Auto) [place] % (Auto) Eos % (Auto) Baso % (Auto) Absolute Neuts (auto) Absolute Lymphs (auto) Total Counted Not Reportable Differential Comment COMMENT Diff Path Review Reviewed Reviewed Ammonia Valproic Acid 93 03/01/19 03/01/19 06:05 08:10 WBC 11.5 H RBC 5.48 Hgb 16.1 Hct 46.8 MCV 85.4 MCH 29.4 MCHC 34.4 RDW 12.7 RDW Differential 39.6 Plt Count 185 MPV 10.0 Immature Gran % (Auto) 0.300 Neut % (Auto) 65.5 Lymph % (Auto) 17.9 L [place] % (Auto) 14.7 H Eos % (Auto) 1.4 Baso % (Auto) 0.2 Absolute Neuts (auto) 7.5 Absolute Lymphs (auto) 2.06 Total Counted Not Reportable Differential Comment Diff Path Review May foll Ammonia 23.0 Valproic Acid Discharge Diet: No Restrictions Discharge Activity: Return to Normal Activity, May Not Drive, - - No ladders, no swimming, no operating machinery. Home Medications: Medications to take at Discharge Ondansetron [Zofran Odt] 4 mg PO Q8H PRN PRN 01/16/16 Metoclopramide [Reglan] 10 mg PO 4X/DAY #20 tablet 05/22/16 Pantoprazole Sodium [Protonix] 40 mg PO BID #60 tablet 05/22/16 Valproic Acid [Depakene] 750 mg PO BID 02/28/19 Meclizine HCl [Antivert] 25 mg PO Q8H PRN PRN #21 tablet 03/01/19 Following Prescrptions Were Given to Patient: Meclizine HCl [Antivert] 25 mg PO Q8H PRN PRN #21 tablet PRN Reason: Dizziness Primary Care Physician: Jose Elias Nguyen MD [Primary Care Provider] - Please follow up with your Primary Care Physician in: 1-2 weeks Please Follow Up With: Neurology - Your own When: 1 week Disposition: Home Minutes spent on discharge:: 35 Patient Condition:: Stable Medical Necessity - Tobacco Use Smoking Status: Never smoker Tobacco Use: Non-smoker Meaningful Use Info Meaningful Use Diagnoses (Choose all that apply): None applicable <Luz,[place] - Last Filed: 03/01/19 12:54> Discharge Date and Diagnosis - Primary Discharge Diagnosis Active and Suspected Problems (Last Reviewed 02/28/19 @ 06:48 by Eusebio Agrawal MD) Vertigo (Acute) Hospital Course and Treatment \ Summary of Care Provided: 24 year old M with 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 Patient was admitted to the telemetry floor. CT of the brain was negative. MRI of the brain, MRA of the head and neck was also negative. Patient had a work-up including urinalysis, CBC D and BMP was positive only for leukocytosis, no signs of infection seen. This was felt to be reactive. Patient continued to be stable, his valproic acid was 93. Ammonia levels was normal. Patient was discharged to follow-up with his neurologist in the outpatient. Physical Exam: Gen:Looks well, not pale, not jaundiced, well hydrated CVS:HS I +II, regular, no murmurs RESP: CTA GI: BS present and normal, soft, nontender, no palpable organs EXT:No edema [employer]PERATIONS: CNII-XII intact, power is 5/5 in all extremities, normal tone. MRI brain, MRA head and neck negative ASSESSMENT: 1. Intractable dizziness, appears resolved now 2. Seizure disorder 3. Leucocytosis, likely reactive, improving 4. Malkersson jason syndrome 5. Obesity - Physical Exam Vital Signs Temp Pulse Resp BP Pulse Ox 98.0 F 104 H 16 126/86 H 92 03/01/19 08:57 03/01/19 08:57 03/01/19 08:57 03/01/19 08:57 03/01/19 08:57 Oxygen Delivery Method Room Air Weight: 100.5 kg Body Mass Index (BMI) 33.7 Intake and Output for Last 24 Hours 02/27/19 02/28/19 03/01/19 23:59 23:59 23:59 Intake Total 1750 / 1750 250 / 250 Balance 1750 / 1750 250 / 250 Laboratory Tests Past 24 Hrs 02/27/19 02/28/19 02/28/19 23:15 11:30 17:15 WBC RBC Hgb Hct MCV MCH MCHC RDW RDW Differential Plt Count MPV Immature Gran % (Auto) Neut % (Auto) Lymph % (Auto) [place] % (Auto) Eos % (Auto) Baso % (Auto) Absolute Neuts (auto) Absolute Lymphs (auto) Total Counted Diff Path Review Reviewed Reviewed Ammonia Valproic Acid 93 03/01/19 03/01/19 06:05 08:10 WBC 11.5 H RBC 5.48 Hgb 16.1 Hct 46.8 MCV 85.4 MCH 29.4 MCHC 34.4 RDW 12.7 RDW Differential 39.6 Plt Count 185 MPV 10.0 Immature Gran % (Auto) 0.300 Neut % (Auto) 65.5 Lymph % (Auto) 17.9 L [place] % (Auto) 14.7 H Eos % (Auto) 1.4 Baso % (Auto) 0.2 Absolute Neuts (auto) 7.5 Absolute Lymphs (auto) 2.06 Total Counted Not Reportable Diff Path Review May foll Ammonia 23.0 Valproic Acid Meaningful Use Info Meaningful Use Diagnoses (Choose all that apply): None applicable Code Visit OBSV E&M: 86271 Observation care discharge
[2019-03-03 12:53] LABS: Pathologist Review Reviewed
--- NOTE | 2019-03-03 13:54 | EEG ---
- Electroencephalogram Date of service 02/28/2019 History EEG is being done in this 24 yr M to rule out seizures EEG Description: This is an 18 channel EEG with 10-20 lead placement system. Bipolar montages, and Referential montages were reviewed. Photic stimulation and Hyperventilation were performed. The posterior dominant rhythm is 9 HZ synchronous, symmetric, reacting to eye opening and closing. Photo stimulation elicited normal driving response but no abnormal photoparoxysmal response, Hyperventilation did not elicit any abnormal photoparoxysmal response. Sleep was identified. There is no abnormal background slowing noted. EKG artefact noted during the record. There was no epileptiform discharges or electrographic seizures noted during this recording. EEG Interpretation This is a normal awake and asleep EEG. There is no epileptiform discharges or electrographic seizures noted during the record.
== END 2019-03-01 12:13 | disposition home or self-care (01) ==
LOC: ED 02-28 01:30 → PCU 02-28 04:42
PROVIDERS: Physician Assistant; Psychiatry & Neurology Neurology; Admitting Provider Hospitalist; Emergency Provider Emergency Medicine; Family Provider Family Medicine; PCP Family Medicine; Visit Provider Internal Medicine
DX: R42 Dizziness and giddiness (principal); E66.9 Obesity, unspecified; Z68.33 Body mass index [BMI] 33.0-33.9, adult; Z71.3 Dietary counseling and surveillance; G40.909 Epilepsy, unspecified, not intractable, without status epilepticus; Z79.899 Other long term (current) drug therapy; G51.2 Melkersson's syndrome; D72.829 Elevated white blood cell count, unspecified
CPT/HCPCS: 36415; 70450; 70544; 70549; 70551; 80048; 80061; 80164; 81001; 82140; 85025; 93005; 95819; 96361; 96374; 96375; 97161; 97165; 99218; 99284; A9575; J7030; J7040; J7050; A4216; G0378; J2405

== ENCOUNTER 2019-08-30 09:40 | Emergency (ER) | payer OTHER, SELFPAY ==
[2019-05-17 10:46] VITALS: BMI 33.7
[2019-08-30 09:42] VITALS: BP 132/87; PULSE 117; RESP 22; TEMP 36.8; O2SAT 97; BMI 34.1
--- NOTE | 2019-08-30 10:24 | ED.DCSUM_ITS ---
History of Present Illness Chief Complaint: Seizure Informant: Patient, Family Onset: Today Context: Sudden Onset Narrative: Patient is a 24-year-old male with history of grand mal seizures presenting with a seizure. Patient was in the car with his mother in the passenger seat, wearing his seatbelt when he suddenly started seizing. Mother states he seized all over for about 2 minutes. The seizing stopped spontaneously. Patient did bite his tongue. He was slightly confused afterwards. Patient was then brought to the emergency room for further evaluation. Patient is on valproic acid ER for seizure control. He states he has not had a breakthrough seizure in well over a year. He states his been compliant with his medications. Patient sees a neurologist at [facility] as well as Dr. Bowles on [address]. He states he feels nauseous now but otherwise was feeling well this morning. He denies any physical complaints at this time. Past Medical History - Allergies and Home Meds Allergies/Adverse Reactions: Allergies amoxicillin trihydrate [From Augmentin] Allergy (Verified 08/30/19 09:56) Shortness of breath banana [Banana] Allergy (Verified 08/30/19 09:56) Chest tightness potassium clavulanate [From Augmentin] Allergy (Verified 08/30/19 09:56) Shortness of breath naproxen [From Naprosyn] Adverse Reaction (Verified 08/30/19 09:56) Nausea AVACODO Allergy (Uncoded 08/30/19 09:56) Shortness of breath KIWI Allergy (Uncoded 08/30/19 09:56) Shortness of breath POTASSIUM NITRATE Allergy (Uncoded 08/30/19 09:56) Shortness of breath Primary Care Physician: Jose Elias Nguyen MD [Primary Care Provider] - Prior records reviewed: Yes Past Medical History: - - Seizure disorder Surgical History: - - Bilateral shoulder surgery. He reported that he had seizures and fell injuring his bilateral shoulders and required surgery. He reported that later his body rejected hardware in his left shoulder so that hardware had to be removed. He thinks that now his body is rejecting the right hardware so that would also have to be removed. Smoking Status: Never smoker - Family History Maternal Family History: Reports: Heart Disease, Renal Disease Paternal Family History: Reports: Heart Disease Review of Systems All systems negative except as indicated ENT: Reports: - - Tongue pain Neurological: Reports: - - Seizure Physical Exam Vital Signs/Narrative: Vital Signs Temp Pulse Resp BP Pulse Ox 08/30/19 09:42 98.3 F 117 H 22 H 132/87 H 97 Inital Vital Signs reviewed: Yes General: Well nourished, Well developed, No Acute Distress Head: Normocephalic, Atraumatic Eyes: Perrl, EOMI, - - No nystagmus ENT: Moist mucous membranes, No rhinorrhea, - - Ecchymosis and abrasions over the left lateral tongue, no active bleeding or laceration Neck: Supple, Nontender Cardiovascular: Regular rate, Regular rhythm, No murmurs Respiratory: No distress, CTA bilaterally, Chest nontender Abdomen: Soft, Nontender, Nondistended, Normal bowel sounds Back: Nontender, Normal Inspection Extremities: Nontender, No edema, - - No deformity Skin: Normal color, - - Slight petechia noted around right cheek and episcopal Neurological: Alert, Oriented x3, Cranial nerves II-XII grossly intact, Normal Strength, Normal Sensation Psychological: Normal affect, Normal Mood Diagnostic/Tx/Re-eval Laboratory Data 08/30/19 08/30/19 08/30/19 10:10 10:20 10:20 WBC 7.4 RBC 5.84 Hgb 16.8 H Hct 50.7 MCV 86.8 MCH 28.8 MCHC 33.1 RDW Std Deviation 38.1 RDW Coeff of Emilie 12.0 Plt Count 224 MPV 9.6 Immature Gran % (Auto) 0.700 Neut % (Auto) 58.2 Lymph % (Auto) 25.4 [place] % (Auto) 12.3 H Eos % (Auto) 2.7 Baso % (Auto) 0.7 Absolute Neuts (auto) 4.3 Absolute Lymphs (auto) 1.87 Nucleated RBC % 0 Sodium 139 Potassium 3.9 Chloride 106 Carbon Dioxide 22.0 Anion Gap 11 BUN 16 Creatinine 1.09 Estim Creat Clear Calc 99.36 Est GFR (MDRD) Af Amer 105 Est GFR (MDRD) Non-Af 87 BUN/Creatinine Ratio 14.7 Glucose 75 Calcium 9.1 Urine Color Yellow Urine Clarity Clear Urine pH 5.0 Ur Specific [place] 1.030 Urine Protein 30 H Urine Glucose (UA) Normal Urine Ketones 15 H Urine Occult Blood 25 H Urine Nitrite Negative Urine Bilirubin Negative Urine Urobilinogen Normal Ur Leukocyte Esterase Negative Urine RBC 0-5 SEEN Urine WBC 0 SEEN Ur Squamous Epith Cells 0 SEEN Urine Bacteria 0 SEEN Urine Mucus 0 SEEN Valproic Acid 08/30/19 10:20 WBC RBC Hgb Hct MCV MCH MCHC RDW Std Deviation RDW Coeff of Emilie Plt Count MPV Immature Gran % (Auto) Neut % (Auto) Lymph % (Auto) [place] % (Auto) Eos % (Auto) Baso % (Auto) Absolute Neuts (auto) Absolute Lymphs (auto) Nucleated RBC % Sodium Potassium Chloride Carbon Dioxide Anion Gap BUN Creatinine Estim Creat Clear Calc Est GFR (MDRD) Af Amer Est GFR (MDRD) Non-Af BUN/Creatinine Ratio Glucose Calcium Urine Color Urine Clarity Urine pH Ur Specific [place] Urine Protein Urine Glucose (UA) Urine Ketones Urine Occult Blood Urine Nitrite Urine Bilirubin Urine Urobilinogen Ur Leukocyte Esterase Urine RBC Urine WBC Ur Squamous Epith Cells Urine Bacteria Urine Mucus Valproic Acid 48 L - Medical Decision Making Patient is evaluated for breakthrough seizure. He appears nontoxic in no acute distress. He does have an abrasion to his tongue consistent with his story but does not have any signs or symptoms consistent with status epilepticus or other more insidious process. He does not have any head trauma and the seizure was witnessed. I do not think a repeat head CT is indicated. Valproic acid level is 48, only mildly subtherapeutic. Patient is counseled to call his neurologist for further advice on his medication dosing and to follow-up. Patient does, that he only slept for 3 hours last night. He is counseled that sleep deprivation can lower the seizure threshold. He is encouraged to get plenty of rest. At this time I feel he is stable for outpatient neurologic follow-up. Patient is counseled on signs and symptoms requiring return to the emergency room. Patient verbalizes agreement and understand this plan. Patient discharged home in stable and improved condition. ED Disposition - Plan for ED Patient: Disposition: Home or Assisted Living Diagnosis: Breakthrough seizure, Abrasion of tongue Instructions: SEIZURE, Recurrent [Adult] Referrals: Jose Elias Nguyen MD [Primary Care Provider] - Additional Instructions: These call your neurologist on Sunday to arrange follow-up. Continue taking your seizure medication as prescribed. Return to emergency room if you have progressing or worsening symptoms.
[2019-08-30 10:27] LABS: Bacteria 0 SEEN /hpf (None Seen); Mucous, Urine 0 SEEN /hpf (<or=2+); Squamous Epithelial Cells - UA 0 SEEN /hpf (0-5); White Blood Cells 0 SEEN /hpf (0-5)
[2019-08-30] MEDS: Ibuprofen 200 MG Tablet 400 MG PO (10:30)
[2019-08-30 10:35] LABS: Absolute Lymphocyte Count 1.87 X10^3/uL (0.83-4.51); Absolute Neutrophil Count 4.3 X10^3/uL (2.0-7.7); Basophil# 0.05 X10^3/uL; Basophil% 0.7 % (0-1); Eosinophils% 2.7 % (0-5); Hematocrit 50.7 % (40-54); Hemoglobin 16.8 g/dL (13.0-16.5); Lymphocyte # 1.87 X10^3/ul (4.0); Lymphocyte % 25.4 % (19-41); Mean Corp Hgb Conc 33.1 g/dL (32-36); Mean Corpuscular Hgb 28.8 pg (27.0-32.0); Mean Corpuscular Volume 86.8 fL (80-94); Mean Platelet Vol. 9.6 fl (6.2-12.0); Monocyte# 0.91 X10^3/uL; Monocyte% 12.3 % (0-10); NRBC Flagged by Analyzer 0 % (0-5); Neutrophil # 4.29 X10^3/uL (2.7-7.7); Neutrophil % 58.2 % (47-70); Platelet Count 224 K/mm3 (150-450); RBC Distribution Width SD 38.1 fl (35.1-43.9); Red Blood Count 5.84 M/mm3 (4.6-6.2); White Blood Count 7.4 K/mm3 (4.4-11.0)
[2019-08-30 10:35] LABS: Color, Urine Yellow (Yellow); Glucose, Dipstick Normal (Normal); Ketone-Dipstick 15 mg/dl (Negative); Leukocyte Esterase-Dipstick Negative /ul (Negative); Nitrite-Dipstick Negative (Negative); Occult Blood-Urine 25 /ul (Negative); Protein-Dipstick 30 mg/dl (Negative); Urine Bilirubin Dipstick Negative (Negative); Urine Clarity Clear (Clear); Urine Urobilinogen Normal (Normal)
[2019-08-30 10:40] LABS: Red Blood Cells-Urine 0-5 SEEN /hpf (0-5)
[2019-08-30 10:43] LABS: Anion Gap 11 (5-15); BUN 16 mg/dL (7-18); BUN/Creat Ratio 14.7 RATIO (10-20); Calcium,Total 9.1 mg/dL (8.5-10.1); Chloride 106 mmol/L (98-107); Creatinine, Serum 1.09 mg/dL (0.70-1.30); EST Glomerular Filtration Rate 87 mL/min (>60); Est Glom Filt Rate - Afr Amer 105 mL/min (>60); Estimated Creatinine Clearance 99.36 ml/min; Glucose 75 mg/dL (74-106); Potassium 3.9 mmol/L (3.5-5.1); Sodium Level 139 mmol/L (136-145)
[2019-08-30 10:52] LABS: Valproic Acid (Depakene) Level 48 ug/mL (50-100)
[2019-08-30 11:17] VITALS: BP 117/75; PULSE 84; RESP 16; O2SAT 99
== END 2019-08-30 11:17 | disposition home or self-care (01) ==
PROVIDERS: Emergency Provider Emergency Medicine; Family Provider Family Medicine; PCP Family Medicine
DX: G40.909 Epilepsy, unspecified, not intractable, without status epilepticus (principal); S00.512A Abrasion of oral cavity, initial encounter; R23.3 Spontaneous ecchymoses; X58.XXXA Exposure to other specified factors, initial encounter; Y93.9 Activity, unspecified; Y92.9 Unspecified place or not applicable; Z79.899 Other long term (current) drug therapy
CPT/HCPCS: 80048; 80164; 81001; 85025; 99285; A4216

== ENCOUNTER 2023-09-21 14:34 | Emergency (ER) | payer SELFPAY ==
[2023-09-21 14:35] VITALS: BP 148/80; PULSE 125; RESP 20; TEMP 35.9; O2SAT 94; BMI 33.5
--- NOTE | 2023-09-21 14:49 | EDS_ITS ---
HPI History of Present Illness Chief Complaint: Seizure Informant: patient, family and EMS Narrative Narrative: 28-year-old male with a history of seizure disorder presenting to the emergency department with a chief complaint of seizure. Patient was riding in a vehicle on his way to [facility] to go to the [facility] when he began to have a generalized seizure. He has a known seizure disorder and takes Depakote. He states that he is unsure who he sees for neurology but it is in [place] through [facility]. He notes that he missed a couple doses of his medications about a week ago. His last seizure was 1 year ago. Patient states he generally feels tired currently. He notes soreness to his tongue and to his feet/ankles. He believe he hit his feet/ankles on the car while having a seizure. Family believes the seizure lasted around 5 minutes. He was able to self extricate him from the vehicle. 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 Seizure Home Medications divalproex 250 mg tablet,extended release 24 hr 250 mg PO BID 08/30/19 [History Last Taken Unknown] Allergy/AdvReac Type Severity Reaction Status Date / Time No Known Allergies Allergy Verified 09/21/23 14:40 Social History Smoking Status: Never smoker [facility] ED Constitutional Constitutional ED: Denies chills, fever(s) or weight loss Eyes Eyes: Denies change in vision or diplopia ENT ENT ED: Reports other Details: Tongue injury ; Denies ear pain, rhinorrhea or sore throat Cardiovascular Cardiovascular: Denies chest pain, orthopnea, palpitations or racing heartbeat Respiratory/Chest Respiratory/Chest: Denies cough, dyspnea or orthopnea Gastrointestinal Gastrointestinal: Denies abdominal pain, diarrhea, nausea or vomiting Genitourinary Genitourinary ED: Denies dysuria, hematuria or urinary frequency Musculoskeletal Musculoskeletal: Reports other Details: Bilateral foot and ankle soreness ; Denies arthralgias or myalgias Integumentary Denies abscess or rash Neurologic Neurologic: Denies headache(s) or weakness Psychiatric Psychiatric: Denies anxiety, depression, suicidal ideation or suicidal thoughts Endocrine Endocrinology: Denies polydipsia, polyphagia or polyuria Allergic/Immunologic Allergic/Immunologic ED: Denies mouth swelling, tongue swelling or urticaria EXAM Physical Exam Const Vital Signs: 09/21/23 14:35 Temperature 96.6 F L Temperature Source Temporal Pulse Rate 125 H Respiratory Rate 20 H Blood Pressure 148/80 H Blood Pressure Mean 102 Pulse Ox 94 Oxygen Delivery Method Room Air Positive well nourished and well developed General Appearance ED: well developed HEENT Reports normocephalic, head/scalp atraumatic and moist mucous membranes HEENT Narrative: There are abrasions/contusion to the left lateral tongue. Eyes PERRL and EOMs intact bilaterally Neck no lymphadenopathy, supple and no JVD Resp normal respiratory effort and clear to auscultation bilaterally Cardio regular rate, regular rhythm and no murmurs Rate: tachycardic GI normal to inspection, nondistended, normoactive bowel sounds and non-tender Palpation: soft Back/Spine no CVA tenderness and normal ROM Extremity Extremity Narrative: There is tenderness anterior to the right lateral malleolus onto the dorsum of the right foot near the insertion of the ATF. There is a superficial abrasion and contusion noted in this area. The actual lateral malleolus is not tender to palpation General Extremety ED: Negative for edema General Extremity: Negative for edema Neuro oriented x3 and CN's II-XII intact bilaterally Sensorium / Orientation: alert Motor Exam: strength 5/5 throughout Psych mental status grossly normal Mood & Affect: Negative for depressed or tearful Skin no rashes or lesions noted and no wounds MDM MDM MDM Narrative Medical decision making narrative: Patient was observed with seizure precautions and given IV fluids. White count 13.8 which I think is some demargination from the seizure. CMP showed a glucose of 111. No significant electrolyte abnormality. CO2 20 which again is most likely from the seizure. Valproic acid level came back at less than 3. He was given valproic acid at 17 mg/kg. My independent interpretation of the right foot films is no acute fracture. Patient will follow-up with his neurologist. He states he has his medications at home. Patient understands return instructions for follow-up and the importance of taking medication. Lab Data Attestation: I reviewed the patient's lab results. Labs: Laboratory Results - last 24 hr 09/21/23 09/21/23 14:39 15:20 WBC 13.8 H RBC 6.06 Hgb 16.7 H Hct 51.3 MCV 84.7 MCH 27.6 MCHC 32.6 RDW Std Deviation 37.4 RDW Coeff of Emilie 12.2 Plt Count 330 MPV 10.2 Immature Gran % (Auto) 1.200 H Neut % (Auto) 63.6 Lymph % (Auto) 20.8 [place] % (Auto) 11.2 H Eos % (Auto) 2.3 Baso % (Auto) 0.9 Absolute Neuts (auto) 8.8 H Absolute Lymphs (auto) 2.87 Nucleated RBC % 0 Diff Path Review May foll Sodium 138 Potassium 3.9 Chloride 104 Carbon Dioxide 20.0 L Anion Gap 14 BUN 10 Creatinine 1.23 Estim Creat Clear Calc 84.96 Est GFR (MDRD) Af Amer 89 Est GFR (MDRD) Non-Af 73 BUN/Creatinine Ratio 8.1 L Glucose 111 H Calcium 9.2 Total Bilirubin 0.40 AST 22 ALT 45 Alkaline Phosphatase 72 Total Protein 8.2 Albumin 3.9 Globulin 4.3 H Albumin/Globulin Ratio 0.9 Urine Color Yellow Urine Clarity Clear Urine pH 6.0 Ur Specific [place] 1.025 Urine Protein 30 H Urine Glucose (UA) Normal Urine Ketones 15 H Urine Occult Blood 10 H Urine Nitrite Negative Urine Bilirubin Negative Urine Urobilinogen Normal Ur Leukocyte Esterase 25 H Urine RBC 0 SEEN Urine WBC 0-5 SEEN Ur Squamous Epith Cells 0-5 SEEN Urine Bacteria RARE Urine Mucus 0 SEEN Valproic Acid < 3 L Discharge Plan Triage Chief Complaint: Seizure ED Provider: Luis M Padron Dx/Rx/DC Orders Clinical Impression: Abrasion of tongue, Epileptic seizure, Abrasion of ankle, right, Contusion of ankle, right Instructions: Epilepsy: Safety During a Seizure Prescriptions: No Action divalproex 250 MG tablet 250 mg PO BID Primary Care Provider: Jose Elias Nguyen Referrals: Jose Elias Nguyen MD [Primary Care Provider] - As Needed Activity Restrictions/Additional Instructions: Please follow-up with neurologist Please take your medication as directed No driving until cleared by neurology. Disposition Disposition: Home, Self Care
[2023-09-21] MEDS: 0.9% Normal Saline (1000mL) 1,000 ML 999 ML IV (14:50)
[2023-09-21 15:00] LABS: Absolute Lymphocyte Count 2.87 X10^3/uL (0.83-4.51); Absolute Neutrophil Count 8.8 X10^3/uL (2.0-7.7); Basophil# 0.13 X10^3/uL; Basophil% 0.9 % (0-1); Eosinophil# 0.32 X10^3/uL; Eosinophils% 2.3 % (0-5); Hematocrit 51.3 % (40-54); Hemoglobin 16.7 g/dL (13.0-16.5); Lymphocyte # 2.87 X10^3/ul (0.83-4.51); Lymphocyte % 20.8 % (19-41); Mean Corp Hgb Conc 32.6 g/dL (32-36); Mean Corpuscular Hgb 27.6 pg (27.0-32.0); Mean Corpuscular Volume 84.7 fL (80-94); Mean Platelet Vol. 10.2 fl (6.2-12.0); Monocyte# 1.55 X10^3/uL; Monocyte% 11.2 % (0-10); NRBC Flagged by Analyzer 0 % (0-5); Neutrophil # 8.75 X10^3/uL (2.7-7.7); Neutrophil % 63.6 % (47-70); POSITIVE DIFFERENTIAL YES; Platelet Count 330 K/mm3 (150-450); RBC Distribution Width CV 12.2 % (11.6-14.6); RBC Distribution Width SD 37.4 fl (35.1-43.9); Red Blood Count 6.06 M/mm3 (4.6-6.2); White Blood Count 13.8 K/mm3 (4.4-11.0)
[2023-09-21 15:08] LABS: Differential Indicated SCAN CRITERIA MET
[2023-09-21 15:16] LABS: ALB/GLOB Ratio 0.9 RATIO (0.9-2.4); AST(SGOT) 22 U/L (15-37); Alanine Aminotransfer ALT/SGPT 45 U/L (16-61); Albumin, Serum 3.9 g/dL (3.2-5.0); Alkaline Phosphatase 72 U/L (45-117); Anion Gap 14 (5-15); BUN 10 mg/dL (7-18); BUN/Creat Ratio 8.1 RATIO (10-20); Calcium,Total 9.2 mg/dL (8.5-10.1); Chloride 104 mmol/L (98-107); Creatinine, Serum 1.23 mg/dL (0.70-1.30); EST Glomerular Filtration Rate 73 mL/min (>60); Est Glom Filt Rate - Afr Amer 89 mL/min (>60); Estimated Creatinine Clearance 84.96 ml/min; Globulin 4.3 g/dL (2.2-4.2); Glucose 111 mg/dL (74-106); Potassium 3.9 mmol/L (3.5-5.1); Protein, Total 8.2 g/dL (6.4-8.2); Sodium Level 138 mmol/L (136-145)
[2023-09-21 15:36] LABS: Valproic Acid (Depakene) Level < 3 ug/mL (50-100)
[2023-09-21 16:26] LABS: Mucous, Urine 0 SEEN /hpf (<or=2+); Red Blood Cells-Urine 0 SEEN /hpf (0-5)
[2023-09-21 16:29] LABS: Color, Urine Yellow (Yellow); Glucose, Dipstick Normal (Normal); Ketone-Dipstick 15 mg/dl (Negative); Leukocyte Esterase-Dipstick 25 /ul (Negative); Nitrite-Dipstick Negative (Negative); Occult Blood-Urine 10 /ul (Negative); Protein-Dipstick 30 mg/dl (Negative); Specific Gravity, Urine 1.025 (1.002-1.030); Urine Bilirubin Dipstick Negative (Negative); Urine Clarity Clear (Clear); Urine Urobilinogen Normal (Normal)
[2023-09-21 16:43] LABS: Bacteria RARE /hpf (None Seen); Squamous Epithelial Cells - UA 0-5 SEEN /hpf (0-5); White Blood Cells 0-5 SEEN /hpf (0-5)
--- NOTE | 2023-09-21 17:36 | RAD_ITS ---
EXAM: XR RIGHT FOOT COMPLETE, 3 OR MORE VIEWS CLINICAL INDICATION: injury TECHNIQUE: Frontal, lateral and oblique views of the right foot. COMPARISON: No relevant prior studies available. FINDINGS: BONES/JOINTS: Unremarkable. No acute fracture. No subluxation. Normal alignment. Preservation of the joint space. No sclerotic or destructive changes observed. SOFT TISSUES: Unremarkable. No soft tissue swelling or gas. No radiopaque foreign body. RAD/Foot min 3 Views IMPRESSION: Negative right foot x-rays. Electronically Signed: Art Wen MD at 17:48 EST ,
[2023-09-21 17:56] VITALS: BP 126/73; PULSE 103; RESP 16; O2SAT 97
[2023-09-24 13:22] LABS: Pathologist Review Reviewed
== END 2023-09-21 17:57 | disposition home or self-care (01) ==
PROVIDERS: Emergency Provider Emergency Medicine; PCP Family Medicine; Visit Provider Emergency Medicine
DX: G40.909 Epilepsy, unspecified, not intractable, without status epilepticus (principal); S90.511A Abrasion, right ankle, initial encounter; S90.01XA Contusion of right ankle, initial encounter; S00.512A Abrasion of oral cavity, initial encounter; X58.XXXA Exposure to other specified factors, initial encounter; Y92.810 Car as the place of occurrence of the external cause; Z79.899 Other long term (current) drug therapy
CPT/HCPCS: 73630; 80053; 80164; 81001; 85025; 96361; 96365; 99285; A4216

== ENCOUNTER 2023-12-16 15:50 | Emergency (ER) | payer OTHER, SELFPAY ==
[2023-12-16 15:53] VITALS: O2SAT 95
[2023-12-16 15:54] VITALS: BP 129/83; PULSE 154; RESP 28; TEMP 35.9; O2SAT 95; BMI 32.5
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
[2023-12-16] MEDS: 0.9% Normal Saline (1000mL) 1,000 ML 999 ML IV (16:09)
[2023-12-16] MEDS: Ondansetron 4 MG/2 ML Vial IV (16:09)
[2023-12-16 16:19] LABS: Absolute Lymphocyte Count 4.95 X10^3/uL (0.83-4.51); Absolute Neutrophil Count 7.3 X10^3/uL (2.0-7.7); Basophil# 0.16 X10^3/uL; Basophil% 1.1 % (0-1); Eosinophil# 0.24 X10^3/uL; Eosinophils% 1.6 % (0-5); Hematocrit 51.8 % (40-54); Hemoglobin 16.5 g/dL (13.0-16.5); Lymphocyte # 4.95 X10^3/ul (0.83-4.51); Lymphocyte % 33.9 % (19-41); Mean Corp Hgb Conc 31.9 g/dL (32-36); Mean Corpuscular Hgb 27.5 pg (27.0-32.0); Mean Corpuscular Volume 86.5 fL (80-94); Mean Platelet Vol. 10.5 fl (6.2-12.0); Monocyte# 1.73 X10^3/uL; Monocyte% 11.9 % (0-10); NRBC Flagged by Analyzer 0 % (0-5); Neutrophil # 7.31 X10^3/uL (2.7-7.7); Neutrophil % 50.1 % (47-70); POSITIVE DIFFERENTIAL YES; Platelet Count 372 K/mm3 (150-450); RBC Distribution Width CV 12.7 % (11.6-14.6); RBC Distribution Width SD 39.4 fl (35.1-43.9); Red Blood Count 5.99 M/mm3 (4.6-6.2); White Blood Count 14.6 K/mm3 (4.4-11.0)
[2023-12-16 16:20] LABS: Differential Indicated SCAN CRITERIA MET
[2023-12-16 16:33] LABS: Anion Gap 20 (5-15); BUN 15 mg/dL (7-18); BUN/Creat Ratio 12.3 RATIO (10-20); Calcium,Total 9.7 mg/dL (8.5-10.1); Chloride 104 mmol/L (98-107); Creatinine, Serum 1.22 mg/dL (0.70-1.30); EST Glomerular Filtration Rate 74 mL/min (>60); Est Glom Filt Rate - Afr Amer 89 mL/min (>60); Estimated Creatinine Clearance 100.03 ml/min; Glucose 123 mg/dL (74-106); Potassium 3.7 mmol/L (3.5-5.1); Sodium Level 137 mmol/L (136-145)
[2023-12-16 16:37] LABS: Valproic Acid (Depakene) Level < 3 ug/mL (50-100)
--- NOTE | 2023-12-16 16:42 | EKG12_ITS ---
Test Reason : GEN ILLNESS Blood Pressure : / mmHG Vent. Rate : 123 BPM Atrial Rate : 123 BPM P-R Int : 142 ms QRS Dur : 076 ms QT Int : 310 ms P-R-T Axes : 044 018 042 degrees QTc Int : 443 ms Sinus tachycardia Otherwise normal ECG Confirmed by TYRESE TREADWELL, DIEGO ([id number]), graphic editor CHRIS MIDDLETON ([id number]) on 12/17/2023 10:20:52 AM Referred By: Confirmed By:DIEGO XIONG MD
--- OUTSIDE RECORDS SUMMARY | 2023-12-16 16:46 | XMS RPT_ITS | CCD ---
Author Name Unknown Address [address] [place] [address] Organization [facility] Care Team Providers Care Front Desk Coordinator Name Role Phone MAYRA OLIVA Unavailable Unavailable MAYRA OLIVA Unavailable Unavailable MAYRA GARVEY Unavailable Unavailable APMELA PARIS Unavailable Unavailable PAMELA PARIS Unavailable Unavailable PAMELA PARIS Unavailable Unavailable JOHANN ELIZABETH MD Primary Care Physician Johann Elizabeth MD Primary Care Provider Johann Elizabeth MD Primary Care Provider Johann Elizabeth MD Primary Care Provider RADHA HERNÁNDEZ Referring Unavailable RADHA HERNÁNDEZ Attending Unavailable JOHANN ELIZABETH Primary Care Unavailable Allergies Allergy Classification Reported Allergen(s) Allergy Type Date of Onset Reaction(s) Facility (9 sources) Amoxicillin / Clavulanate; Translations: [amoxicillin-cl avulanate] Drug Allergy 4 Shortness of Breath [facility] (10 sources) Naproxen; Translations: [naproxen] Drug Allergy 0 GI Upset [facility] (8 sources) Banana Extract; Translations: [BANANA] Drug Allergy 4 Other: See Comments [facility] Work Phone: (8 sources) Clavulanate; Translations: [POTASSIUM CLAVULANATE] Drug Allergy 4 Shortness of Breath [facility] Work Phone: (8 sources) potassium nitrate; Translations: [POTASSIUM NITRATE] Drug Allergy 4 Shortness of Breath [facility] Work Phone: (8 sources) Kiwi; Translations: [KIWI] Drug Intolerance 4 Intolerance [facility] Work Phone: (1 source) AMOXICILLIN-POT CLAVULANATE; Translations: [AMOXICILLIN-PO T CLAVULANATE] Propensity to adverse reactions to drug (disorder) 4 [facility] Medications Current Medications Medication Drug Class(es) Dates Sig (Normalized) Sig (Original) 24 hr amphetamine aspartate 5 mg / amphetamine sulfate 5 mg / dextroamphetamine saccharate 5 mg / dextroamphetamine sulfate 5 mg extended release oral capsule (6 sources) Central Nervous System Stimulant Start: 12-21-2022 End: 01-20-2023 take 1 capsule by mouth once daily amphetamine-dextro amphetamine XR (ADDERALL XR) 20 mg 24 hr capsule Indications: ADHD (attention deficit hyperactivity disorder), combined type Take 1 capsule by mouth once daily for 30 days. Do not start before December 21, 2022. 30 capsule 0 12/21/2022 01/20/2023 Active Completed/Discontinued Medications Medication Drug Class(es) Dates Sig (Normalized) Sig (Original) [id number] 200 actuat albuterol 0.09 mg/actuat metered dose inhaler (7 sources) beta2-Adrenergic Agonist Start: 11-26-2018 take 2 puff(s) by inhalation every four hours as needed for cough albuterol HFA (PROVENTIL HFA, VENTOLIN HFA) 90 mcg/actuation inhaler Indications: Cough , History of asthma , Seizures (HCC) , Convulsions, unspecified convulsion type (HCC) , Mild intermittent asthma without complication , Urine frequency , Tachycardia with heart rate 121-140 beats per minute Inhale 2 Puffs as instructed every 4 hours as needed for Wheezing/Shortness of Breath (cough/wheezing/SOB ). With spacer please. 1 Inhaler 0 11/26/2018 Active Problems Active Problems Problem Classification Problem Date Documented Date Episodic/Chronic Asthma (9 sources) Asthma; Translations: [Mild intermittent asthma] Onset: 02-25-2014 03-05-2014 Chronic Attention-deficit, conduct, and disruptive behavior disorders (2 sources) Attention deficit hyperactivity disorder 03-05-2014 Chronic Attention-deficit, conduct, and disruptive behavior disorders (8 sources) Attention deficit hyperactivity disorder, combined type; Translations: [Attention-deficit hyperactivity disorder, combined type] Onset: 08-24-2022 Chronic Diseases of mouth; excluding dental (1 source) Glossopyrosis ; Translations: [Glossodynia] Onset: 12-11-2021 Episodic Disorders of lipid metabolism (7 sources) Dyslipidemia; Translations: [Hyperlipidemia, unspecified] Onset: 12-02-2019 12-02-2019 Chronic Epilepsy; convulsions (12 sources) Generalized idiopathic epilepsy and epileptic syndromes, not intractable, without status epilepticus; Translations: [Generalized convulsive epilepsy] Onset: 01-11-2018 Chronic Epilepsy; convulsions (1 source) Seizure; Translations: [Unspecified convulsions] Onset: 12-06-2021 Episodic Essential hypertension (2 sources) Essential (primary) hypertension; Translations: [ESSENTIAL PRIMARY HYPERTENSION] Onset: 06-14-2017 Chronic Glaucoma (7 sources) Suspected bilateral glaucoma; Translations: [Preglaucoma, unspecified, bilateral] Onset: 01-10-2019 04-02-2019 Chronic Headache; including migraine (2 sources) Migraine 03-05-2014 Chronic Immunizations and screening for infectious disease (1 source) Tuberculosis screening status; Translations: [Encounter for screening for respiratory tuberculosis] Episodic Other connective tissue disease (2 sources) Facial weakness, lower motor neurone 03-05-2014 Episodic Other eye disorders (7 sources) Disorder of eye region; Translations: [Unspecified disorder of eye and adnexa] 10-24-2021 Episodic Other nervous system disorders (7 sources) Melkersson's syndrome; 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] 04-02-2019 Episodic Past or Other Problems Problem Classification Problem Date Documented Da te Episodic/Chronic Administrative/social admission (11 sources) Patient encounter status; Translations: [Encounter for examination for admission to educational institution] Onset: 04-02-2019 Episodic Blindness and vision defects (7 sources) Disorder of refraction; Translations: [Unspecified disorder of refraction] Onset: 01-10-2019 04-02-2019 Episodic Cardiac dysrhythmias (1 source) Tachycardia, unspecified; Translations: [TACHYCARDIA UNSPECIFIED] Onset: 08-17-2017 Episodic Other and unspecified benign neoplasm (7 sources) Hemangioma of liver; Translations: [Hemangioma of intra-abdominal structures] Onset: 06-20-2014 10-24-2021 Episodic Other diseases of kidney and ureters (7 sources) Cyst of kidney; Translations: [Cyst of kidney, acquired] Onset: 04-02-2019 04-02-2019 Episodic Other nervous system disorders (7 sources) Puckett's palsy; Translations: [Puckett's palsy] Onset: 12-28-2012 04-02-2019 Episodic Results Test Name Value Interpretation Reference Range Facil ity Vital Signs Date Time Vital Sign Value Performing Clinician Facility 09-26-2022 13:55-0500 Body temperature 98.01 [degF] Radha GAGNON-C Work Phone: [facility] 09-26-2022 13:55-0500 Body weight 101.61 kg Radha Hernández PA-C Work Phone: [facility] 09-26-2022 13:55-0500 Diastolic blood pressure 86 mm[Hg] Radha GAGNON-C Work Phone: [facility] 09-26-2022 13:55-0500 Heart rate 68 /min Radha Hernández PA-C Work Phone: [facility] 09-26-2022 13:55-0500 Respiratory rate 18 /min Radha Hernández PA-C Work Phone: [facility] 09-26-2022 13:55-0500 Systolic blood pressure 120 mm[Hg] Radha GAGNON-C Work Phone: [facility] 08-24-2022 09:39-0400 Body temperature 98.6 [degF] Radha Hernández PA-C Work Phone: [facility] 08-24-2022 09:39-0400 Body weight 102.97 kg Radha GAGNON-C Work Phone: [facility] 08-24-2022 09:39-0400 Diastolic blood pressure 88 mm[Hg] Radha Hernández PA-C Work Phone: [facility] 08-24-2022 09:39-0400 Heart rate 72 /min Radha GAGNON-C Work Phone: [facility] 08-24-2022 09:39-0400 Respiratory rate 18 /min Radha GAGNON-C Work Phone: [facility] 08-24-2022 09:39-0400 Systolic blood pressure 120 mm[Hg] Radha GAGNON-C Work Phone: [facility] 02-10-2022 09:39-0400 Body height 172.7 cm Jenna Podlogar KITCHEN STEWARD/STEWARDESS.[employer] Work Phone: [facility] 02-10-2022 09:39-0400 Body temperature 97.59 [degF] Jenna Podlogar KITCHEN STEWARD/STEWARDESS.[employer] Work Phone: [facility] 02-10-2022 09:39-0400 Body weight 100.52 kg Jenna Podlogar KITCHEN STEWARD/STEWARDESS.[employer] Work Phone: [facility] 02-10-2022 09:39-0400 Diastolic blood pressure 80 mm[Hg] Jenna Podlogar KITCHEN STEWARD/STEWARDESS.[employer] Work Phone: [facility] 02-10-2022 09:39-0400 Heart rate 91 /min Jenna Podlogar KITCHEN STEWARD/STEWARDESS.[employer] Work Phone: [facility] 02-10-2022 09:39-0400 Respiratory rate 20 /min Jenna Podlogar KITCHEN STEWARD/STEWARDESS.[employer] Work Phone: [facility] 02-10-2022 09:39-0400 SaO2% (BldA) [Mass fraction] 95 % Jenna Podlogar KITCHEN STEWARD/STEWARDESS.[employer] Work Phone: [facility] 02-10-2022 09:39-0400 Systolic blood pressure 110 mm[Hg] Jenna Podlogar KITCHEN STEWARD/STEWARDESS.DIRECT[employer] Work Phone: [facility] 12-11-2021 15:04-0500 Body temperature 98.42 [degF] MATT MENDOZA MD [facility] 12-11-2021 15:04-0500 Diastolic blood pressure 111 mm[Hg] MATT MENDOZA MD [facility] 12-11-2021 15:04-0500 Heart rate 91 /min MATT MENDOZA MD [facility] 12-11-2021 15:04-0500 Respiratory rate 18 /min MATT MENDOZA MD [facility] 12-11-2021 15:04-0500 Systolic blood pressure 156 mm[Hg] MATT MENDOZA MD [facility] 12-06-2021 20:16-0500 Diastolic blood pressure 90 mm[Hg] HERMELINDA FROMMELT DO [facility] 12-06-2021 20:16-0500 Heart rate 98 /min HERMELINDA FROMMELT DO [facility] 12-06-2021 20:16-0500 Respiratory rate 18 /min HERMELINDA FROMMELT DO [facility] 12-06-2021 20:16-0500 Systolic blood pressure 121 mm[Hg] HERMELINDA FROMMELT DO [facility] 12-06-2021 18:35-0500 Body temperature 97.52 [degF] HERMELINDA FROMMELT DO [facility] 12-06-2021 18:35-0500 Diastolic blood pressure 75 mm[Hg] HERMELINDA REAL DO [facility] 12-06-2021 18:35-0500 Heart rate 121 /min HERMELINDA GILLT DO [facility] 12-06-2021 18:35-0500 Mean blood pressure 101 mm[Hg] HERMELINDA GILLT DO [facility] 12-06-2021 18:35-0500 Respiratory rate 18 /min HERMELINDA GILLT DO [facility] 12-06-2021 18:35-0500 Systolic blood pressure 152 mm[Hg] HERMELINDA REAL DO [facility] Encounters Encounter Date Encounter Type Care Provider Facility Start: 12-12-2022 Reffeliciano Ashby on PA-C Work Phone: [facility] Procedures Date Procedure Procedure Detail Performing Clinician Start: 03-23-2021 Adult depression scr eening assessment Jenna Ashraf APRN.DIRECTOR [employer]PORT Work Phone: Start: 02-05-2019 Electrocardiogram Start: 11-22-2018 End: 11-22-2018 Electrocardiogram Start: 11-02-2018 Electrocardiogram None (qualifier value) MATT MENDOZA MD Plan of Treatment Date Care Activity Detail Author Start: 10-09-2023 Urine microalbumin profile DTAP,TDAP,TD (7 - Td or Tdap) [facility] Start: 09-26-2023 ANNUAL PCP TEAM CHRONIC DISEASE VISIT ANNUAL PCP TEAM CHRONIC DISEASE VISIT [facility] Start: 08-24-2023 ANNUAL PCP TEAM CHRONIC DISEASE VISIT ANNUAL PCP TEAM CHRONIC DISEASE VISIT [facility] Start: 02-10-2023 ANNUAL PCP TEAM CHRONIC DISEASE VISIT ANNUAL PCP TEAM CHRONIC DISEASE VISIT [facility] Start: 10-29-2022 DEPRESSION ASSESSMENT DEPRESSION ASSESSMENT [facility] Start: 08-24-2022 End: 10-24-2022 CBC W Auto Differential panel - Blood CBC + DIFF Lab Routine ADHD (attention deficit hyperactivity disorder), combined type Screening for diabetes mellitus Encounter for lipid screening for cardiovascular disease Expected: 08/24/2022, Expires: 10/24/2022 [facility] Work Phone: Immunizations Immunization Date Immunization Notes Care Provider Fa jg 07-31-2022 influenza virus vaccine, unspecified formulation Johann Elizabeth MD Work Phone: [facility] 07-31-2022 influenza, injectabl e, quadrivalent, preservative free Radha Hernández PA-C Work Phone: [facility] 08-16-2020 influenza, injectabl e, quadrivalent, contains preservative Jenna Podlogar KITCHEN STEWARD/STEWARDESS.DIRECTOR [employer]PORT Work Phone: [facility] 08-12-2014 influenza, seasonal, injectable Jenna Podlogar KITCHEN STEWARD/STEWARDESS.DIRECTOR [employer]PORT Work Phone: [facility] Work Phone: 10-09-2013 hepatitis A vaccine, unspecified formulation Jenna Podlogar KITCHEN STEWARD/STEWARDESS.[employer] Work Phone: [facility] 10-09-2013 influenza virus vaccine, unspecified formulation Jenna Podlogar KITCHEN STEWARD/STEWARDESS.DIRECT[employer] Work Phone: [facility] 10-09-2013 Meningococcal, MCV4, unspecified conjugate formulation(groups A, C, Y and W-135) Jenna Podlogar KITCHEN STEWARD/STEWARDESS.DIRECTOR [employer]PORT Work Phone: [facility] 10-09-2013 tetanus toxoid, redu aixa diphtheria toxoid, and acellular pertussis vaccine, adsorbed Jenna Podlogar KITCHEN STEWARD/STEWARDESS.DIRECT[employer] Work Phone: [facility] 12-17-1997 diphtheria, tetanus toxoids and acellular pertussis vaccine Jenna Podlogar KITCHEN STEWARD/STEWARDESS.[facility] Work Phone: [facility] Work Phone: 12-17-1997 measles, mumps and rubella virus vaccine Jenna Podlogar KITCHEN STEWARD/STEWARDESS.[facility] Work Phone: [facility] Work Phone: 12-17-1997 trivalent poliovirus vaccine, live, oral Jenna Podlogar KITCHEN STEWARD/STEWARDESS.[facility] Work Phone: [facility] Work Phone: 06-19-1995 diphtheria, tetanus toxoids and acellular pertussis vaccine Jenna Podlogar KITCHEN STEWARD/STEWARDESS.[facility] Work Phone: [facility] Work Phone: 06-19-1995 trivalent poliovirus vaccine, live, oral Jenna Podlogar KITCHEN STEWARD/STEWARDESS.[facility] Work Phone: [facility] Work Phone: 05-23-1994 measles, mumps and rubella virus vaccine Jenna Podlogar KITCHEN STEWARD/STEWARDESS.[facility] Work Phone: [facility] Work Phone: 02-06-1994 haemophilus influenz ae type b vaccine, HbOC conjugate Jenna Podlogar KITCHEN STEWARD/STEWARDESS.[facility] Work Phone: [facility] Work Phone: 1993 hepatitis B vaccine, pediatric or pediatric/adolescent dosage Jenna Podlogar KITCH[employer] STEWARD/STEWARDESS.[facility] Work Phone: [facility] Work Phone: 1993 diphtheria, tetanus toxoids and pertussis vaccine Jenna Podlogar KITCHEN STEWARD/STEWARDESS.[facility] Work Phone: [facility] Work Phone: 1993 haemophilus influenz ae type b vaccine, HbOC conjugate Jenna Podlogar KITCHEN STEWARD/STEWARDESS.[facility] Work Phone: [facility] Work Phone: 1993 diphtheria, tetanus toxoids and pertussis vaccine Jenna Podlogar KITCHEN STEWARD/STEWARDESS.[facility] Work Phone: [facility] Work Phone: 1993 haemophilus influenz ae type b vaccine, HbOC conjugate Jenna Podlogar KITCHEN STEWARD/STEWARDESS.[facility] Work Phone: [facility] Work Phone: 1993 hepatitis B vaccine, pediatric or pediatric/adolescent dosage Jenna Podlogar KITCH[employer] STEWARD/STEWARDESS.[facility] Work Phone: [facility] Work Phone: 1993 trivalent poliovirus vaccine, live, oral Jenna Podlogar KITCH[employer] STEWARD/STEWARDESS.[facility] Work Phone: [facility] Work Phone: 1993 diphtheria, tetanus toxoids and pertussis vaccine Jenna Podlogar KITCHEN STEWARD/STEWARDESS.[facility] Work Phone: [facility] Work Phone: 1993 haemophilus influenz ae type b vaccine, HbOC conjugate Jenna Podlogar KITCHEN STEWARD/STEWARDESS.[facility] Work Phone: [facility] Work Phone: 1993 hepatitis B vaccine, pediatric or pediatric/adolescent dosage Jenna Podlogar KITCHEN STEWARD/STEWARDESS.[facility] Work Phone: [facility] Work Phone: 1993 trivalent poliovirus vaccine, live, oral Jenna Podlogar KITCHEN STEWARD/STEWARDESS.[facility] Work Phone: [facility] Work Phone: Payers Date Payer Category Payer Unknown [employer] [id number] 2021-Present [phone] [address] [place] [address] PPO [id number] 2021 Unknown [employer] P[employer] [id number] 2021-Present [phone] [address] [place] [address] PPO [id number] 2021 Unknown [id number] 1961 Unknown [id number] Social History Date Type Detail Facility Start: 2018 End: 08-24-2022 Never smoked tobacco (finding) [facility] Sex Assigned At [facility] Start: 02-10-2022 End: 09-26-2022 Alcohol intake Current non-drinker of alcohol (finding) [facility] Start: 03-23-2021 End: 02-03-2022 History SDOH Alcohol Frequency 1 [facility] Start: 03-23-2021 History SDOH Alcohol Std Drinks 98 [facility] Start: 03-23-2021 History SDOH Financial 4 [facility] Start: 02-03-2022 End: 08-24-2022 History SDOH Housing Unable to Pay 2 [facility] Start: 03-23-2021 Education 12 [facility] Start: 12-18-2012 Tobacco Comment mom and dad sm aden, indoors [facility] Start: 1993 Sex Assigned At Male C [facility] History of tobacco use Passive smoker [facility] Start: 2018 End: 08-24-2022 Tobacco use and exposure Smokeless tobacco non-user [facility] Start: 08-14-2022 End: 09-26-2022 Exposure to SARS-CoV-2 (event) Not sure [facility] Clinical Notes 12-06-2021 to 09-24-2023 Telephone Encounter - Johann Elizabeth MD - 12/13/2022 11:29 AM ESTTelephone Encounter - Aranza Hankins LPN - 12/12/2022 4:50 PM Winston Hernández PA-C - 09/26/2022 2:01 PM EST Note Date & Type Note Facility 09-24-2023 Note HNO ID: [id number] Author: Enid Terrazas LPN Service: ? Author Type: ? Type: Progress Notes Filed: 09/24/2023 11:27 AM Note Text: Scan on 09/22/2023 12:00 AM by Provider, PAULINO Lilly: Consultation - Emergency Medicine Scan on 09/21/2023 5:52 PM by ProviderMaxx PA-C: X-ray [facility] 12-13-2022 Miscellaneous Notes Formattin g of this note is different from the original. The following approved medication requests have been transmitted electronically. Requested Prescriptions Signed Prescriptions Disp Refills amphetamine-dextroamphetamine XR (ADDERALL XR) 20 mg 24 hr capsule 30 capsule 0 Sig: Take 1 capsule by mouth once daily for 30 days. Do not start before December 21, 2022. Authorizing Provider: JOHANN ELIZABETH MD PDMP website checked and validated. All prescriptions have been APPROPRIATELY filled. No suspicious activity was identified. 12/13/2022 by Johann Elizabeth MD Patient has been identified by name and date of : Yes, Provider Dr. Elizabeth Date 12/12/22 Time 4:51 pm Patient phones for refill(s): Requested Prescriptions Pending Prescriptions Disp Refills amphetamine-dextroamphetamine XR (ADDERALL XR) 20 mg 24 hr capsule 30 capsule 0 Sig: Take 1 capsule by mouth once daily for 30 days. Date of last office visit in primary care: 09/26/22 next apt Last 2 Encounter Wt Readings: Date: Wt: 09/26/2022 101.6 kg (224 lb) 08/24/2022 103 kg (227 lb) Previous labs/tests for medication: Not applicable Thank you. Aranza Hankins LPN documented in this encounter [facility] 11-13-2022 Miscellaneous Notes Formattin g of this note is different from the original. The following approved medication requests have been transmitted electronically. Requested Prescriptions Signed Prescriptions Disp Refills amphetamine-dextroamphetamine XR (ADDERALL XR) 20 mg 24 hr capsule 30 capsule 0 Sig: Take 1 capsule by mouth once daily for 30 days. Authorizing Provider: RADHA HERNÁNDEZ PA-C Patient has been identified by name and date of : Yes Requested Prescriptions Pending Prescriptions Disp Refills amphetamine-dextroamphetamine XR (ADDERALL XR) 20 mg 24 hr capsule 30 capsule 0 Sig: Take 1 capsule by mouth once daily for 30 days. RX INSTRUCTIONS: Patient aware RX will be sent to pharmacy. No need to notify patient. Natasha Sharpe MA Ashleigh: 08/2022 Nov: 12/2022 Last refill: 09/2022 documented in this encounter [facility] 09-26-2022 Note HNO ID: [id number] Author: Radha Hernández PA-C Service: ? Author Type: Physician Senior Estimator Type: Progress Notes Filed: 09/26/2022 2:33 PM Note Text: Chief Complaint Patient presents with: Recheck HPI Evi Beach is a 27 year old male who presents here today for med check. Patient was started on adderall last month. He feels like this has been working well for him. Denies any SE to medication Past medical history, appointments, medications, allergies reviewed. Previous Medical History PAST MEDICAL HISTORY Diagnosis Date ADHD (attention deficit hyperactivity disorder) 05/24/2010 Not on meds. 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 Melkersson syndrome reguring bells pulsey Migraine 02/20/2019 Mild intermittent asthma 02/25/2014 Refractive error 01/10/2019 Renal cyst 04/02/2019 Seen MRI 12/2018 1.5 right renal. Repeat US in 6 months Vertebral compression fracture (HCC) T 4 T5 Previous Surgical History PAST SURGICAL HISTORY Procedure Laterality Date ARTHROSCOPIC HARDWARE REMOVAL Left Left shoulder hardware removal CIRCUMCISION N/A 1992 ESOPHAGOGASTRODUODENOSCOPY TRANSORAL DIAGNOSTIC 08/13/14 EGD EXTRACTION SINGLE TOOTH [id number] 4 teeth pulled, done at [facility] HX Bilateral fracture dislocations Family History FAMILY HISTORY Problem Relation Age of Onset None Mother Kidney Disease Mother stones Diabetes Mother Asthma Father No Known Problems Sister Diabetes Maternal Grandmother Hypertension Maternal Grandmother Stroke Maternal Grandmother heart failure Heart Maternal Grandmother Kidney Disease Maternal Grandmother stones Accidental Maternal Grandfather MVA Hypertension Other Patient Allergies ALLERGIES Allergen Reactions Augmentin [Amoxicil* Shortness of Breath Potassium Clavulana* Shortness of Breath Was told of this in ER Potassium Nitrate Shortness of Breath Banana Other: See Comments Causes chest pain Kiwi Intolerance Naproxen GI Upset Current Medications Current Outpatient Medications on File Prior to Visit Medication Sig amphetamine-dextroamphetamine XR (ADDERALL XR) 20 mg 24 hr capsule Take 1 capsule by mouth once daily for [address] (DEPAKOTE) 500 mg EC tablet Take 1 tablet by mouth twice daily. albuterol HFA (PROVENTIL HFA, VENTOLIN HFA) 90 mcg/actuation inhaler Inhale 2 Puffs as instructed every 4 hours as needed for Wheezing/Shortness of Breath (cough/wheezing/SOB). With spacer please. MULTIVITAMIN WITH MINERALS (MULTI-VITAMIN W/MINERALS ORAL) Take 1 tablet by mouth twice daily. No current facility-administered medications on file prior to visit. Social History Social History Tobacco Use Smoking status: Never Passive exposure: Yes Smokeless tobacco: Never Vaping Use Vaping Use: Never used Substance Use Topics Alcohol use: No Drug use: No Review of Symptoms REVIEW OF SYSTEMS GENERAL: No weight loss, malaise or fevers NECK: Negative for lumps, goiter, pain and significant neck swelling RESPIRATORY: Negative for cough, hemoptysis, wheezing, COPD, dyspnea or shortness of breath CARDIOVASCULAR: Negative for chest pain, leg swelling, hypertension, CHF or palpitations EXAM: BP 120/86 (BP Site: Left Arm, BP Position: Sitting, BP Cuff Size: Large Adult) Pulse 68 Temp 36.7 ?C (98 ?F) Resp 18 Wt 101.6 kg (224 lb) BMI 34.06 kg/m? General Appearance: Well appearing, alert, in no acute distress, well-hydrated, well nourished.. Health Maintenance List PNEUMOCOCCAL(1 - PCV) Never done SPIROMETRY Never done HIV SCREENING Never done COVID-19 VACCINE(3 - Booster for Pfizer series) due on 02/11/2021 ANNUAL PCP TEAM CHRONIC DISEASE VISIT due on 08/24/2023 DTAP,TDAP,TD(7 - Td or Tdap) due on 10/09/2023 HEPATITIS B Completed INFLUENZA Completed DEPRESSION ASSESSMENT Completed HEPATITIS C SCREENING Completed Data reviewed Component Latest Ref Rng AND Units 08/30/2022 WBC 3.70 - 11.00 k/uL 10.93 RBC 4.20 - 6.00 m/uL 5.62 Hemoglobin 13.0 - 17.0 g/dL 16.1 Hematocrit 39.0 - 51.0 % 48.2 MCV 80.0 - 100.0 fL 85.8 MCH 26.0 - 34.0 pg 28.6 MCHC 30.5 - 36.0 g/dL 33.4 RDW-CV 11.5 - 15.0 % 12.6 Platelet Count 150 - 400 k/uL 262 MPV 9.0 - 12.7 fL 10.7 Neut% % 66.4 Abs Neut (ANC) 1.45 - 7.50 k/uL 7.25 Lymph% % 19.5 Abs Lymph 1.00 - 4.00 k/uL 2.13 [place]% % 12.5 Abs [place] <0.87 k/uL 1.37 (H) Eosin% % 0.7 Abs Eosin <0.46 k/uL 0.08 Baso% % 0.5 Abs Baso <0.11 k/uL 0.06 Immature Gran % % 0.4 IMMATURE GRANS (ABS) <0.10 k/uL 0.04 NRBC /100 WBC 0.0 Absolute nRBC <0.0 (more content not included)... [facility] 09-26-2022 History of Presen t illness Narrative Chief Complaint Patient presents with: Recheck HPI Evi Beach is a 27 year old male who presents here today for med check. Patient was started on adderall last month. He feels like this has been working well for him. Denies any SE to medication Past medical history, appointments, medications, allergies reviewed. Previous Medical History PAST MEDICAL HISTORY Diagnosis Date ADHD (attention deficit hyperactivity disorder) 05/24/2010 Not on meds. 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 Melkersson syndrome reguring bells pulsey Migraine 02/20/2019 Mild intermittent asthma 02/25/2014 Refractive error 01/10/2019 Renal cyst 04/02/2019 Seen MRI 12/2018 1.5 right renal. Repeat US in 6 months Vertebral compression fracture (HCC) T 4 T5 Previous Surgical History PAST SURGICAL HISTORY Procedure Laterality Date ARTHROSCOPIC HARDWARE REMOVAL Left Left shoulder hardware removal CIRCUMCISION N/A 1992 ESOPHAGOGASTRODUODENOSCOPY TRANSORAL DIAGNOSTIC 08/13/14 EGD EXTRACTION SINGLE TOOTH D7110 4 teeth pulled, done at [facility] HX Bilateral fracture dislocations Family History FAMILY HISTORY Problem Relation Age of Onset None Mother Kidney Disease Mother stones Diabetes Mother Asthma Father No Known Problems Sister Diabetes Maternal Grandmother Hypertension Maternal Grandmother Stroke Maternal Grandmother heart failure Heart Maternal Grandmother Kidney Disease Maternal Grandmother stones Accidental Maternal Grandfather MVA Hypertension Other Patient Allergies ALLERGIES Allergen Reactions Augmentin [Amoxicil* Shortness of Breath Potassium Clavulana* Shortness of Breath Was told of this in ER Potassium Nitrate Shortness of Breath Banana Other: See Comments Causes chest pain Kiwi Intolerance Naproxen GI Upset Current Medications Current Outpatient Medications on File Prior to Visit Medication Sig amphetamine-dextroamphetamine XR (ADDERALL XR) 20 mg 24 hr capsule Take 1 capsule by mouth once daily for [address] (DEPAKOTE) 500 mg EC tablet Take 1 tablet by mouth twice daily. albuterol HFA (PROVENTIL HFA, VENTOLIN HFA) 90 mcg/actuation inhaler Inhale 2 Puffs as instructed every 4 hours as needed for Wheezing/Shortness of Breath (cough/wheezing/SOB). With spacer please. MULTIVITAMIN WITH MINERALS (MULTI-VITAMIN W/MINERALS ORAL) Take 1 tablet by mouth twice daily. No current facility-administered medications on file prior to visit. Social History Social History Tobacco Use Smoking status: Never Passive exposure: Yes Smokeless tobacco: Never Vaping Use Vaping Use: Never used Substance Use Topics Alcohol use: No Drug use: No Review of Symptoms REVIEW OF SYSTEMS GENERAL: No weight loss, malaise or fevers NECK: Negative for lumps, goiter, pain and significant neck swelling RESPIRATORY: Negative for cough, hemoptysis, wheezing, COPD, dyspnea or shortness of breath CARDIOVASCULAR: Negative for chest pain, leg swelling, hypertension, CHF or palpitations EXAM: BP 120/86 (BP Site: Left Arm, BP Position: Sitting, BP Cuff Size: Large Adult) Pulse 68 Temp 36.7 C (98 F) Resp 18 Wt 101.6 kg (224 lb) BMI 34.06 kg/m General Appearance: Well appearing, alert, in no acute distress, well-hydrated, well nourished.. Health Maintenance List PNEUMOCOCCAL(1 - PCV) Never done SPIROMETRY Never done HIV SCREENING Never done COVID-19 VACCINE(3 - Booster for Pfizer series) due on 02/11/2021 ANNUAL PCP TEAM CHRONIC DISEASE VISIT due on 08/24/2023 DTAP,TDAP,TD(7 - Td or Tdap) due on 10/09/2023 HEPATITIS B Completed INFLUENZA Completed DEPRESSION ASSESSMENT Completed HEPATITIS C SCREENING Completed Data reviewed Component Latest Ref Rng & Units 08/30/2022 WBC 3.70 - 11.00 k/uL 10.93 RBC 4.20 - 6.00 m/uL 5.62 Hemoglobin 13.0 - 17.0 g/dL 16.1 Hematocrit 39.0 - 51.0 % 48.2 MCV 80.0 - 100.0 fL 85.8 MCH 26.0 - 34.0 pg 28.6 MCHC 30.5 - 36.0 g/dL 33.4 RDW-CV 11.5 - 15.0 % 12.6 Platelet Count 150 - 400 k/uL 262 MPV 9.0 - 12.7 fL 10.7 Neut% % 66.4 Abs Neut (ANC) 1.45 - 7.50 k/uL 7.25 Lymph% % 19.5 Abs Lymph 1.00 - 4.00 k/uL 2.13 [place]% % 12.5 Abs [place] <0.87 k/uL 1.37 (H) Eosin% % 0.7 Abs Eosin <0.46 k/uL 0.08 Baso% % 0.5 Abs Baso <0.11 k/uL 0.06 Immature Gran % % 0.4 IMMATURE GRANS (ABS) <0.10 k/uL 0.04 NRBC /100 WBC 0.0 Absolute nRBC <0.01 k/uL <0.01 DTYPE Auto Protein, Total 6.3 - 8.0 g/dL 7.5 Albumin 3.9 - 4.9 g/dL 4.6 Calcium 8.5 - 10.2 mg/dL 9.8 Bilirubin, Total 0.2 - 1.3 mg/dL 0.3 Alkaline Phosphatase 38 - 113 U/L 58 AST 14 - 40 U/L 28 ALT 10 - 54 U/L 46 Glucose 74 - 99 mg/dL 82 BUN 9 - 24 mg/dL 14 Creatinine 0.73 - 1.22 mg/dL 1.11 Sodium 136 - 144 mmol/L 140 Potassium 3.7 - 5.1 mmol/L 4.1 Chloride 97 - 105 mmol/L 103 CO2 22 - 30 mmol/L 25 Anion Gap 9 - 18 mmol/L 12 eGFR >=60 mL/min/1.73m 92 Total Cholesterol, Nonfasting <200 mg/dL 209 (H) Triglycerides, Nonfasting <150 mg/dL 326 (H) HDL Cholesterol, Nonfasting >39 mg/dL 31 (L) LDL Cholesterol, Nonfasting <100 mg/dL 113 (H) Non HDL Cholesterol, Nonfasting <130 mg/dL 178 (H) VLDL Cholesterol, Nonfasting <30 mg/dL 65 (H) Total Chol/HDL Ratio, Nonfasting <5.10 mg/dL 6.74 (H) LDL/HDL Ratio, Nonfasting <2.54 mg/dL 3.65 (H) Hemoglobin A1C 4.3 - 5.6 % 5.0 Estimated Average Glucose mg/dL 97 ASSESSMENT/PLAN: 1. 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 1 refill sent 2. ADHD (attention deficit hyperactivity disorder), combined type - ICD9: 314.01, ICD10: F90.2 Doing well on medication. Refill given. Follow up in 4 months med check. - DEXTROAMPHETAMINE-AMPHETAMINE ER 20 MG 24HR CAPSULE,EXTEND RELEASE Radha Hernández PA-C documented in this encounter [facility] 08-24-2022 History of Presen t illness Narrative Chief Complaint Patient presents with: Recheck: Wqanting to restart ADHD medication and needs lab work HPI Evi Beach is a 27 year old male who presents here today for ADHD discussion. Patient with hx of ADHD and used to be on adderall XR. Has been off of adderall for years but always felt like he should of still been on it. 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 His grades have started to decline and he's realizing he needs help. Past medical history, appointments, medications, allergies reviewed. Previous Medical History PAST MEDICAL HISTORY Diagnosis Date ADHD (attention deficit hyperactivity disorder) 05/24/2010 Not on meds. 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 Melkersson syndrome reguring bells pulsey Migraine 02/20/2019 Mild intermittent asthma 02/25/2014 Refractive error 01/10/2019 Renal cyst 04/02/2019 Seen MRI 12/2018 1.5 right renal. Repeat US in 6 months Vertebral compression fracture (HCC) T 4 T5 Previous Surgical History PAST SURGICAL HISTORY Procedure Laterality Date ARTHROSCOPIC HARDWARE REMOVAL Left Left shoulder hardware removal CIRCUMCISION N/A 1992 ESOPHAGOGASTRODUODENOSCOPY TRANSORAL DIAGNOSTIC 08/13/14 EGD EXTRACTION SINGLE TOOTH D7110 4 teeth pulled, done at [facility] HX Bilateral fracture dislocations Family History FAMILY HISTORY Problem Relation Age of Onset None Mother Kidney Disease Mother stones Diabetes Mother Asthma Father No Known Problems Sister Diabetes Maternal Grandmother Hypertension Maternal Grandmother Stroke Maternal Grandmother heart failure Heart Maternal Grandmother Kidney Disease Maternal Grandmother stones Accidental Maternal Grandfather MVA Hypertension Other Patient Allergies ALLERGIES Allergen Reactions Augmentin [Amoxicil* Shortness of Breath Potassium Clavulana* Shortness of Breath Was told of this in ER Potassium Nitrate Shortness of Breath Banana Other: See Comments Causes chest pain Kiwi Intolerance Naproxen GI Upset Current Medications Current Outpatient Medications on File Prior to Visit Medication Sig divalproex DR (DEPAKOTE) 500 mg EC tablet Take 1 tablet by mouth twice daily. albuterol HFA (PROVENTIL HFA, VENTOLIN HFA) 90 mcg/actuation inhaler Inhale 2 Puffs as instructed every 4 hours as needed for Wheezing/Shortness of Breath (cough/wheezing/SOB). With spacer please. MULTIVITAMIN WITH MINERALS (MULTI-VITAMIN W/MINERALS ORAL) Take 1 tablet by mouth twice daily. No current facility-administered medications on file prior to visit. Social History Social History Tobacco Use Smoking status: Never Passive exposure: Yes Smokeless tobacco: Never Vaping Use Vaping Use: Never used Substance Use Topics Alcohol use: No Drug use: No Review of Symptoms REVIEW OF SYSTEMS See hpi EXAM: BP 120/88 (BP Site: Right Arm, BP Position: Sitting, BP Cuff Size: Large Adult) Pulse 72 Temp 37 C (98.6 F) Resp 18 Wt 103 kg (227 lb) BMI 34.52 kg/m General Appearance: Well appearing, alert, in no acute distress, well-hydrated, well nourished.. Health Maintenance List PNEUMOCOCCAL(1 - PCV) Never done SPIROMETRY Never done HIV SCREENING Never done COVID-19 VACCINE(3 - Booster for Pfizer series) due on 02/11/2021 DEPRESSION ASSESSMENT Never done ANNUAL PCP TEAM CHRONIC DISEASE VISIT due on 02/10/2023 DTAP,TDAP,TD(7 - Td or Tdap) due on 10/09/2023 HEPATITIS B Completed INFLUENZA Completed HEPATITIS C SCREENING Completed Data reviewed N/a ASSESSMENT/PLAN: 1. ADHD (attention deficit hyperactivity disorder), combined type - ICD9: 314.01, ICD10: F90.2 (primary diagnosis) Start adderall XR 20mg Check tox screen Recheck in 1 month. - COMP METABOLIC PANEL - CBC + DIFF - TOX SCREEN ROUT UR - PAIN PANEL, UR QUANT - DEXTROAMPHETAMINE-AMPHETAMINE ER 20 MG 24HR CAPSULE,EXTEND RELEASE - PAIN PANEL, UR QUANT - SPECIMEN VALIDITY, URINE 2. Screening for diabetes mellitus - ICD9: V77.1, ICD10: Z13.1 - COMP METABOLIC PANEL - HGB A1C - CBC + DIFF 3. Encounter for lipid screening for cardiovascular disease - ICD9: V77.91, V81.2, ICD10: Z13.220, Z13.6 - LIPID PANEL, NONFASTING - COMP METABOLIC PANEL - CBC + DIFF 4. Medication management - ICD9: V58.69, ICD10: Z79.899 - TOX SCREEN ROUT UR - PAIN PANEL, UR QUANT - PAIN PANEL, UR QUANT - SPECIMEN VALIDITY, URINE Radha Hernández PA-C documented in this encounter [facility] 08-15-2022 Miscellaneous Notes Formattin g of this note might be different from the original. Yes I can. Radha, Do you see patients for ADHD meds? Sydni Deleon documented in this encounter [facility] 05-31-2022 Miscellaneous Notes Faxed. Marleny Engel Ma Consult placed. Please fax per request. Radha Hernández PA-C Last Visit with Dr. Elizabeth was 12/02/2019. Last Visit was Jenna Ashraf 02/23/2022. Do you need an updated visit? Natasha Sharpe MA Patient calling to request a Neurology referral be faxed to [facility] for patient to be able to continue to see the neurologist there, per their guidelines. Please fax referral to FAX# [phone]. Patient requests a [facility] message letting him know that his referral has been faxed. Neurology consult pended for further completion. Thank you. documented in this encounter [facility] 02-10-2022 History of Presen t illness Narrative 02/10/2022 Patient presents with: Physical: TB shot SUBJECTIVE: This is a 27 year old that is here today for Above Complaints.. Since last office visit has been in good health without ER visits or hospitalizations. No concerns today. 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 Hx of epilepsy: Sees Dr. Paris in [place] for hx of seizures. Taking medications as prescribed. Last seizure was in 2018. Mild intermittent asthma: has not needed rescue inhaler for some time. 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 PAST MEDICAL HISTORY Diagnosis Date ADHD (attention deficit hyperactivity disorder) 05/24/2010 Not on meds. 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 Melkersson syndrome reguring bells pulsey Migraine 02/20/2019 Mild intermittent asthma 02/25/2014 Refractive error 01/10/2019 Renal cyst 04/02/2019 Seen MRI 12/2018 1.5 right renal. Repeat US in 6 months Vertebral compression fracture (HCC) T 4 T5 ALLERGIES Augmentin [Amoxicillin-Pot Clavulanate], Potassium Clavulanate, Potassium Nitrate, Banana, Kiwi, and Naproxen MEDICATIONS Current Outpatient Medications Medication Sig albuterol HFA (PROVENTIL HFA, VENTOLIN HFA) 90 mcg/actuation inhaler Inhale 2 Puffs as instructed every 4 hours as needed for Wheezing/Shortness of Breath (cough/wheezing/SOB). With spacer please. MULTIVITAMIN WITH MINERALS (MULTI-VITAMIN W/MINERALS ORAL) Take 1 tablet by mouth twice daily. divalproex ER (DEPAKOTE ER) 250 mg 24 hr tablet Take 3 tablets by mouth twice daily. (Patient not taking: Reported on 02/10/2022 ) lamoTRIgine (LAMICTAL) 25 mg tablet Take 2 tablets by mouth twice daily. (Patient not taking: Reported on 02/10/2022 ) No current facility-administered medications for this visit. Medications and allergies reviewed by this provider. SOCIAL HISTORY Social History Tobacco Use Smoking status: Passive Smoke Exposure - Never Smoker Smokeless tobacco: Never Used Vaping Use Vaping Use: Never used Substance Use Topics Alcohol use: No Drug use: No REVIEW OF SYSTEMS GENERAL: No weight loss, malaise or fevers HEENT: No changes in hearing or vision, no nose bleeds or other nasal problems NECK: Negative for lumps, goiter, pain and significant neck swelling RESPIRATORY: Negative for cough, hemoptysis, wheezing, COPD, dyspnea or shortness of breath CARDIOVASCULAR: Negative for chest pain, leg swelling, hypertension, CHF or palpitations GI: No nausea, vomiting, or diarrhea : No history of dysuria, frequency or incontinence MUSCULOSKELETAL: Negative for joint pain or swelling, back pain or muscle pain SKIN: Negative for lesions, rash, and itching PSYCH: Negative for sleep disturbance, mood disorder and recent psychosocial stressors HEMATOLOGY/LYMPHOLOGY: Negative for prolonged bleeding, bruising easily or swollen nodes ENDOCRINE: Negative for cold or heat intolerance, polyuria, polydipsia and goiter NEURO: No history of syncope, paralysis, or tremors All other reviewed and negative other than HPI. OBJECTIVE: BP 110/80 Pulse 91 Resp 20 Ht 172.7 cm (5' 8 ) Wt 100.5 kg (221 lb 9.6 oz) SpO2 95% BMI 33.69 kg/m . Vital signs reviewed by this provider. PHYSICAL EXAMINATION: General appearance: Well appearing, alert, in no acute distress, well-hydrated, well nourished. Skin: Skin color, texture, turgor normal, no suspicious rashes or lesions Eyes: Anicteric sclera. Ears: External ears normal, canals clear Nose/Sinuses: Nares normal, septum midline, mucosa normal, no drainage or sinus tenderness, Positive findings: mucosa mildly erythematous and swollen Oropharynx: Lips, mucosa, and tongue normal, teeth and gums normal, oropharynx normal Neck: Supple, no adenopathy; thyroid symmetric, normal size, Lungs: Lungs clear to auscultation. No wheezing, rhonchi, rales. Heart: RRR without murmur, gallop, or rubs. No ectopy Abdomen: Abdomen soft, non-tender. Bowel sounds normal. No masses, organomegaly Extremities: No deformities, edema, skin discoloration, clubbing or cyanosisMusculoskeletal: No joint swelling, deformity, or tenderness SPIROMETRY Never done HIV SCREENING Never done COVID-19 VACCINE(3 - Booster for Pfizer series) due on 05/16/2021 DEPRESSION SCREENING due on 03/23/2022 INFLUENZA(Season Ended) due on 06/29/2022 ANNUAL PCP TEAM CHRONIC DISEASE VISIT due on 02/10/2023 DTAP,TDAP,TD(7 - Td or Tdap) due on 10/09/2023 HEPATITIS C SCREENING Completed MENINGOCOCCAL CONJUGATE Aged Out ASSESSMENT/PLAN: 1. School physical exam - ICD9: V70.5, ICD10: Z02.0 (primary diagnosis) - normal exam today - follow-up yearly and as needed 2. Screening-pulmonary TB - ICD9: V74.1, ICD10: Z11.1 - BLOOD TB SCREEN 3. 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 Patient advised if symptoms do not improve or if symptoms worsen sooner, to contact their primary care physician. Potential red flag symptoms discussed with the patient. Reviewed appropriate action plan to take if red flag symptoms occur. Patient agreeable to treatment plan. documented in this encounter [facility] 12-11-2021 Hospital Discharg e instructions Patient Education 12/11/2021 15:09:49 Lidocaine oral solution Lidocaine oral solution What is this medicine? LIDOCAINE (LYE rowan gross) is a local anesthetic. It causes loss of feeling in the skin and surrounding tissues. How should I use this medicine? The medicine is for topical use in the mouth or throat. Do not swallow this medicine unless you have been told to. Follow the directions on the prescription label. Use a specially marked spoon or container to measure the solution. Ask your pharmacist if you do not have one. If you have a sore place in your mouth, you can apply the medicine with a cotton-tipped applicator. The solution can be swished around the mouth or gargled. Take your medicine at regular intervals. Do not take your medicine more often than directed. Do not use this medicine in infants and children for teething pain. Talk to your electronic engineering draftsperson regarding the use of this medicine in children. Special care may be needed. Patients over 65 years old may have a stronger reaction and need a smaller dose. What side effects may I notice from receiving this medicine? Side effects that you should report to your doctor or health manager intensive care unit as soon as possible: allergic reactions like skin rash, itching or hives, swelling of the face, lips, or tongue anxiety or nervousness changes in vision chest pain confusion seizures tremor or shaking Side effects that usually do not require medical attention (report to your doctor or health manager intensive care unit if they continue or are bothersome): dizziness drowsiness What may interact with this medicine? Do not take this medicine with any of the following medications: dofetilide MAOIs like Carbex, Eldepryl, Marplan, Nardil, and Parnate This medicine may also interact with the following medications: other local anesthetics What if I miss a dose? If you miss a dose, take it as soon as you can. If it is almost time for your next dose, take only that dose. Do not take double or extra doses. Where should I keep my medicine? Keep out of reach of children. Store at room temperature between 15 and 30 degrees C (59 and 86 degrees F). Do not freeze. What should I tell my health care provider before I take this medicine? They need to know if you have any of these conditions: heart disease liver disease an unusual or allergic reaction to lidocaine, local anesthetics, other medicines, foods, dyes, or preservatives or trying to get breast-feeding What should I watch for while using this medicine? Be careful to avoid injury while the area is numb and you are not aware of pain. If this medicine is used in the mouth or throat, do not chew gum or eat food for at least one hour. If the area is still numb, you may choke or bite your tongue or cheek if you try to chew or swallow. Also, you may not feel pain from hot foods or drinks. NOTE:This sheet is a summary. It may not cover all possible information. If you have questions about this medicine, talk to your doctor, pharmacist, or health care provider. Copyright 2019 [employer] [facility] 12/11/2021 15:01:04 With:JOHANN ELIZABETH MD Address: [address] [place] [address] [place] [address]- When:2-4 days [facility] 12-06-2021 Hospital Discharg e instructions Patient Education 12/06/2021 20:13:32 Seizure, Recurrent (Adult) Recurrent Seizure (Adult) You have had another seizure today. A common cause of seizures that keep happening (recurrent seizures) is missing doses of seizure medicine. But sometimes seizures are hard to control even when you take the medicine correctly. If this is the case for you, your healthcare provider may need to increase your dosage. Or you may need to add or change to another medicine. Home care Follow these tips when caring for yourself at home. For this seizure: Seizures aren t predictable. So avoid doing anything that might cause danger to you or other people if you have another seizure. Until the seizures are under good control, take these precautions: oDon t drive, ride a motorcycle, or ride a bike. oDon t operate dangerous equipment such as power tools oTake showers instead of baths. oDon t swim or climb ladders, trees, or roofs. Tell your close friends and relatives about your seizure. Teach them what to do for you if it happens again. If medicine was prescribed to prevent seizures, take it exactly as directed. It does not work when taken as needed. Missing doses will increase the risk of having another seizure. If you miss a dose, take the missed dose as soon as you remember. If it is almost time for your next dose, skip the missed dose. Restart the medicine at your next scheduled time. Don t take extra medicine to make up the missed dose. Wear a Medic-Alert bracelet to let emergency personnel know about your condition. Follow a regular sleep schedule such that you get at least 6 to 8 hours of restful sleep every night. This is especially important when you are sick with a cold or flu and/or another type of infection. For future seizures, if you are alone: If you feel a seizure coming on, lie down on a bed or on the floor with something soft under your head. Lie on your left side, not on your back. This will keep you from falling. It will also let fluid drain out of your mouth and prevent choking. Be sure you are clear of any objects that might injure you during the seizure. Call for help if there is time. For future seizures, if someone is with you: The person should help you get into a safe position and call for help. The person shouldn t try to force anything in your mouth once the seizure begins. This could harm your teeth or jaw. Follow-up care Follow up with your healthcare provider. Keep a seizure calendar to record how often you have a seizure. If you are being started on anti-seizure medicine, make sure that you use additional control. Seizure medicine can affect how well control pills work, and you could become . Avoid alcohol until your doctor tells you it s OK. Note: For the safety of yourself and others on the road, certain states require that the treating doctor tell the Public Health Department about any adult who is treated for a seizure and is at risk of more seizures. In this case, the Department of Motor Vehicles will be told. 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 Contact your treating doctor to find out if your state requires the reporting of patients with a seizures condition. When to seek medical advice Call your healthcare provider right away if any of these occur: Seizures happen more often or last longer than usual A seizure lasts over 5 minutes You don t wake up between seizures Confusion that lasts more than 30 minutes after a seizure Injury during a seizure Fever over 100.4 F (38.0 C), or as advised Unusual irritability, drowsiness, or confusion Stiff or painful neck Headache that gets worse [id number] [employer]. [address] [place] [address], [place] [address]. All rights reserved. This information is not intended as a substitute for professional medical care. Always follow your healthcare professional's instructions. Follow Up Care 12/06/2021 18:21:57 With:Call Physician Referral Address:Unknown When:2-4 days [facility] Evaluation + Plan note No data available for this section [facility] Diagnosis Generalized convulsive epilepsy (HCC)- Primary Generalized convulsive epilepsy without mention of intractable epilepsy documented in this encounter [facility] note* Diagnosis ADHD (attention deficit hyperactivity disorder), combined type- Primary Attention deficit disorder with hyperactivity Screening for diabetes mellitus Encounter for lipid screening for cardiovascular disease Screening for lipoid disorders Medication management Encounter for long-term (current) use of other medications documented in this encounter [facility] note* Diagnosis ADHD (attention deficit hyperactivity disorder), combined type- Primary Attention deficit disorder with hyperactivity Generalized convulsive epilepsy (HCC) Generalized convulsive epilepsy without mention of intractable epilepsy documented in this encounter [facility] note* Diagnosis ADHD (attention deficit hyperactivity disorder), combined type Attention deficit disorder with hyperactivity documented in this encounter [facility] note* Diagnosis ADHD (attention deficit hyperactivity disorder), combined type Attention deficit disorder with hyperactivity documented in this encounter [facility] Summary Purpose Family History No Family History Records FoundNo Family History Records FoundNo Family History Records FoundNo Family History Records FoundNo Family History Records Found Advance Directives No Advanced Directives Records FoundDocuments on File Type Date 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 Advance Directive(s) 02/09/2019 7:44 PM Advance Directive(s) 02/05/2019 10:01 AM Advance Directive(s) 11/22/2018 6:28 PM Advance Directive(s) 2018 8:10 AM Documents on File Type Date 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 Advance Directive(s) 02/09/2019 7:44 PM Advance Directive(s) 02/05/2019 10:01 AM Advance Directive(s) 11/22/2018 6:28 PM Advance Directive(s) 2018 8:10 AM Reason for Referral Specialty Diagnoses / Procedures Referred By Clara mullins Referred To Contact Neurology Diagnoses Generalized convulsive epilepsy (HCC) Procedures CONSULT TO NEUROLOGY OFFICE/OUTPATIENT [facility] 60-74 MINUTES Radha Hernández PA-C [address] [place] [address] Referral ID Status Reason Start Date Expiration Date Visits Requested Visits Authorized [id number] Pending Review PCP Requested Referral 05/31/2022 05/30/2023 1 1 Additional Source Comments (unrecognized sect ion and content) No Status Records FoundNo Status Records FoundNo Status Records FoundNo Status Records FoundNo Status Records Found INFORMATION SOURCE (unrecogn ized section and content) DATE CREATED AUTHOR AUTHOR'S ORGANIZ ATION 10/28/2019 [facility] DATE CREATED AUTHOR AUTHOR'S ORGANIZ ATION 10/28/2019 [facility] DATE CREATED AUTHOR AUTHOR'S ORGANIZ ATION 12/26/2021 [facility] ([place]) DATE CREATED AUTHOR AUTHOR'S ORGANIZ ATION 09/25/2023 [facility] Source Comments (unrecognize d section and content) In the event this informatio n is protected by the Federal Confidentiality of Alcohol and Drug Abuse Patient Records regulations: The Federal rules restrict any use of the information to criminally investigate or prosecute any alcohol or drug abuse patient.[facility] the event this information is protected by the Federal Confidentiality of Alcohol and Drug Abuse Patient Records regulations: The Federal rules restrict any use of the information to criminally investigate or prosecute any alcohol or drug abuse patient.[facility] the event this information is protected by the Federal Confidentiality of Alcohol and Drug Abuse Patient Records regulations: The Federal rules restrict any use of the information to criminally investigate or prosecute any alcohol or drug abuse patient.[facility] the event this information is protected by the Federal Confidentiality of Alcohol and Drug Abuse Patient Records regulations: The Federal rules restrict any use of the information to criminally investigate or prosecute any alcohol or drug abuse patient.[facility] the event this information is protected by the Federal Confidentiality of Alcohol and Drug Abuse Patient Records regulations: The Federal rules restrict any use of the information to criminally investigate or prosecute any alcohol or drug abuse patient.[facility] the event this information is protected by the Federal Confidentiality of Alcohol and Drug Abuse Patient Records regulations: The Federal rules restrict any use of the information to criminally investigate or prosecute any alcohol or drug abuse patient.[facility] the event this information is protected by the Federal Confidentiality of Alcohol and Drug Abuse Patient Records regulations: The Federal rules restrict any use of the information to criminally investigate or prosecute any alcohol or drug abuse patient.[facility] Reason for Visit (unrecogniz ed section and content) Specialty Diagnoses / Procedures Referred By Contac t Referred To Contact Family Practice / FAMILY MEDICINE Diagnoses I need a physical for [facility] and TB Test Procedures [facility] [employer], [place].[employer] [address] [place] [address] Referral ID Status Reason Start Date Expiration Date Visits Re quested Visits Authorized [id number] Closed 10/29/2021 10/28/2022 1 1 Reason Comments Neurology Referral Request Reason Comments Recheck Wqanting to restart ADHD medication and needs lab work Specialty Diagnoses / Procedures Referred By Contac t Referred To Contact Family Medicine / FAMILY MEDICINE Diagnoses Follow-up examination Primary Care Procedures OFFICE/OUTPATIENT ESTABLISHED MOD MDM 30-39 MIN 4C EST Radha Hernández PA-C [address] [place] [address] Radha Hernández PA-C [address] [place] [address] Referral ID Status Reason Start Date Expiration Date Visits Re quested Visits Authorized [id number] Closed 08/24/2022 10/28/2022 1 1 Reason Comments Recheck Specialty Diagnoses / Procedures Referred By Contac t Referred To Contact Family Medicine / FAMILY MEDICINE Diagnoses 4 week med check Procedures 4C EST Radha Hernández PA-C [address] [place] [address] Radha Hernández PA-C [address] [place] [address] Referral ID Status Reason Start Date Expiration Date Visits Re quested Visits Authorized [id number] Closed 09/25/2022 10/28/2022 1 1 Reason Onset Date Comments Refill Request 11/11/2022 Reason Onset Date Comments Refill Request 12/12/2022 Care Teams (unrecognized sec tion and content) Front Desk Coordinator Relationship Specialty Start Date End Date Johann Elizabeth MD [address] [place] [address] PCP - General Family Practice 04/02/19 Front Desk Coordinator Relationship Specialty Start Date End Date Johann Elizabeth MD [address] [place] [id number] PCP - General Family Medicine 04/02/19 Front Desk Coordinator Relationship Specialty Start Date End Date Johann Elizabeth MD [address] [place] [address] [place] [address] PCP - General Family Medicine 04/02/19 Front Desk Coordinator Relationship Specialty Start Date End Date Johann Elizabeth MD [address] [place] [address], [place] [address] PCP - General Family Medicine 04/02/19 Front Desk Coordinator Relationship Specialty Start Date End Date Johann Elizabeth MD [address] [place] [address] [place] [address] PCP - General Family Medicine 04/02/19 Front Desk Coordinator Relationship Specialty Start Date End Date Johann Elizabeth MD [address] [place] [id number] PCP - General Family Medicine 04/02/19 FOR RECORDS PERTAINING TO PATIENTS WHO ARE OR HAVE BEEN ENROLLED IN A CHEMICAL DEPENDENCY/SUBSTANCEABUSE PROGRAM, SOME INFORMATION MAY BE OMITTED. This clinical summary was aggregated from multiple sources. Caution should be exercised in using it in the provision of clinical care. This summary normalizes information from multiple sources, and as a consequence, information in this document may materially change the coding, format and clinical context of patient data. In addition, data may be omitted in some cases. CLINICAL DECISIONS SHOULD BE BASED ON THE PRIMARY CLINICAL RECORDS. [facility] [employer] [facility]. provides no warranty or guarantee of the accuracy or completeness of information in this document.
--- NOTE | 2023-12-16 16:55 | RAD_ITS ---
STUDY: X-RAY - RIGHT ANKLE REASON FOR EXAM: Male, 28 years old. pain TECHNIQUE: 3 view(s) of the ankle. COMPARISON: None. FINDINGS: Normal visualized distal tibia and fibula. Normal medial and lateral malleoli. Normal tibiotalar articulation and ankle mortise. Normal visualized talus and calcaneus. Tiny posterior calcaneal enthesophyte. The visualized subtalar, talonavicular, calcaneocuboid and tarsal articulations are normal. The soft tissue structures are unremarkable. RAD/Ankle min 3 Views IMPRESSION: Normal x-ray examination of the ankle. Electronically Signed: Lee Lizarraga MD at 17:13 EST ,
[2023-12-16 17:03] LABS: Differential Comment SCANNED
[2023-12-16 17:04] LABS: AST(SGOT) 27 U/L (15-37); Alanine Aminotransfer ALT/SGPT 48 U/L (16-61); Albumin, Serum 4.2 g/dL (3.2-5.0); Alkaline Phosphatase 74 U/L (45-117); Bilirubin, Direct 0.13 mg/dL (0.00-0.30); Globulin 4.2 g/dL (2.2-4.2); Protein, Total 8.4 g/dL (6.4-8.2)
[2023-12-16] MEDS: Divalproex Sodium 250 MG Tablet 500 MG PO (17:57)
[2023-12-16 18:01] VITALS: BP 102/69; PULSE 102; RESP 24; TEMP 34.8; TEMP 36.4; O2SAT 95
[2023-12-19 12:04] LABS: Pathologist Review Reviewed
== END 2023-12-16 18:14 | disposition home or self-care (01) ==
LOC: ED 16:42
PROVIDERS: Physician Assistant; Emergency Provider Emergency Medicine; PCP Family Medicine; Visit Provider Emergency Medicine
DX: G40.89 Other seizures (principal); Z91.148 Patient's other noncompliance with medication regimen for other reason; M25.571 Pain in right ankle and joints of right foot; Z79.899 Other long term (current) drug therapy
CPT/HCPCS: 73610; 80048; 80076; 80164; 85025; 93005; 96361; 96374; 99283; J7030; A4216; J2405

== ENCOUNTER 2024-02-03 19:08 | Emergency (ER) | payer SELFPAY ==
[2024-02-03 19:09] VITALS: BP 126/91; PULSE 128; RESP 20; TEMP 36.5; O2SAT 95; BMI 33.2
--- NOTE | 2024-02-03 19:23 | EKG12_ITS ---
Test Reason : SEIZURE Blood Pressure : / mmHG Vent. Rate : 106 BPM Atrial Rate : 106 BPM P-R Int : 154 ms QRS Dur : 084 ms QT Int : 342 ms P-R-T Axes : 037 -02 031 degrees QTc Int : 454 ms Sinus tachycardia Otherwise normal ECG When compared with ECG of 16-DEC-2023 16:46, No significant change was found Confirmed by Tobias Maciel ([id number]), online editor CHRIS MIDDLETON ([id number]) on 02/06/2024 11:23:38 AM Referred By: Confirmed By:Tobias Maciel
[2024-02-03] MEDS: Ondansetron 4 MG/2 ML Vial IV (19:29)
[2024-02-03] MEDS: 0.9% Normal Saline (1000mL) 1,000 ML 999 ML IV (19:30)
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
[2024-02-03] MEDS: Divalproex Sodium 250 MG Tablet PO (19:39)
--- NOTE | 2024-02-03 19:46 | RAD_ITS ---
STUDY: X-RAY - LEFT TIBIA AND FIBULA REASON FOR EXAM: Male, 29 years old. pain TECHNIQUE: 2 view(s) of the tibia and fibula were obtained. COMPARISON: None. FINDINGS: Normal visualized tibia. Normal visualized fibula. There is no demonstrated acute fracture. The soft tissue structures are unremarkable. RAD/Tibia & Fibula 2 Views IMPRESSION: Normal x-ray examination of the tibia and fibula. Electronically Signed: Tarik Bernstein MD at 20:22 EDT ,
[2024-02-03 20:05] LABS: Absolute Neutrophil Count 6.9 X10^3/uL (2.0-7.7); Basophil# 0.08 X10^3/uL; Basophil% 0.7 % (0-1); Eosinophil# 0.19 X10^3/uL; Eosinophils% 1.6 % (0-5); Hematocrit 49.3 % (40-54); Hemoglobin 16.4 g/dL (13.0-16.5); Lymphocyte % 26.3 % (19-41); Mean Corp Hgb Conc 33.3 g/dL (32-36); Mean Corpuscular Hgb 27.9 pg (27.0-32.0); Mean Corpuscular Volume 83.8 fL (80-94); Mean Platelet Vol. 10.6 fl (6.2-12.0); Monocyte# 1.33 X10^3/uL; Monocyte% 11.3 % (0-10); NRBC Flagged by Analyzer 0 % (0-5); Neutrophil # 6.87 X10^3/uL (2.7-7.7); Neutrophil % 58.3 % (47-70); Platelet Count 298 K/mm3 (150-450); RBC Distribution Width CV 12.5 % (11.6-14.6); RBC Distribution Width SD 38.4 fl (35.1-43.9); Red Blood Count 5.88 M/mm3 (4.6-6.2); White Blood Count 11.8 K/mm3 (4.4-11.0)
[2024-02-03] MEDS: Valproate Sodium 1,000 MG in Dextrose 5%-Water (50mL Bag) 50 ML 50 MG IV (20:17)
[2024-02-03 20:19] VITALS: BP 129/86; PULSE 102; RESP 20; O2SAT 96
[2024-02-03 20:23] LABS: AST(SGOT) 44 U/L (15-37); Alanine Aminotransfer ALT/SGPT 36 U/L (16-61); Albumin, Serum 3.9 g/dL (3.2-5.0); Alkaline Phosphatase 65 U/L (45-117); Anion Gap 14 (5-15); BUN 17 mg/dL (7-18); BUN/Creat Ratio 14.4 RATIO (10-20); Calcium,Total 9.1 mg/dL (8.5-10.1); Chloride 106 mmol/L (98-107); Creatinine, Serum 1.18 mg/dL (0.70-1.30); EST Glomerular Filtration Rate 77 mL/min (>60); Est Glom Filt Rate - Afr Amer 93 mL/min (>60); Estimated Creatinine Clearance 103.56 ml/min; Globulin 3.9 g/dL (2.2-4.2); Glucose 107 mg/dL (74-106); Potassium 3.9 mmol/L (3.5-5.1); Protein, Total 7.8 g/dL (6.4-8.2); Sodium Level 137 mmol/L (136-145)
[2024-02-03 20:25] LABS: Valproic Acid (Depakene) Level < 3 ug/mL (50-100)
[2024-02-03 21:07] VITALS: BP 122/89; PULSE 101; RESP 16; O2SAT 96
[2024-02-03 21:31] VITALS: BP 128/78; PULSE 99; RESP 24; TEMP 36.6; O2SAT 98
== END 2024-02-03 21:43 | disposition home or self-care (01) ==
PROVIDERS: Physician Assistant; Emergency Provider Emergency Medicine; PCP Family Medicine; Visit Provider Emergency Medicine
DX: R56.9 Unspecified convulsions (principal); Z91.148 Patient's other noncompliance with medication regimen for other reason; S86.912A Strain of unspecified muscle(s) and tendon(s) at lower leg level, left leg, initial encounter; V48.5XXA Car driver injured in noncollision transport accident in traffic accident, initial encounter; Z79.899 Other long term (current) drug therapy
CPT/HCPCS: 73590; 80053; 80164; 85025; 93005; 96365; 96375; 99284; J7030; A4216; J2405